=== PATIENT | female | born 1970 | race Caucasian/White ===

== ENCOUNTER 2018-10-01 06:38 | Emergency (ER) | payer BC, OTHER ==
[2018-10-01] MEDS ORDERED: Sodium Chloride 0.9% 10 ML Syringe FLUSH PRN (06:52)
[2018-10-01] MEDS ORDERED: Sodium Chloride 0.9% 2.5 ML Syringe FLUSH PRN (06:52)
[2018-10-01] MEDS ORDERED: Pantoprazole 40 MG Vial IVPUSH ONE (06:52)
[2018-10-01] MEDS ORDERED: Aspirin 81 MG Tab.Chew PO ONE (06:52)
--- NOTE | 2018-10-01 06:56 | EDM.PDOC ---
<Ave Ricks - Last Filed: 10/01/18 06:53> ED HPI GENERAL MEDICAL PROBLEM - General Chief Complaint: Chest Pain Stated Complaint: CHEST PAIN Time Seen by Provider: 10/01/18 06:43 - History of Present Illness INITIAL COMMENTS - FREE TEXT/NARRATIVE: HISTORY AND PHYSICAL: History of present illness: The patient is a 48-year-old female with no known medical history but says she has not seen a physician in over 10 years and presents with midsternal chest pain burning that started and woke her from sleep at 5 AM. The patient says she has no history of cardiac or pulmonary problems and doesn't get chest pain very often but does say that she gets heartburn intermittently at least once a week for which she uses [id number] Tums area she said that she had a normal day yesterday and did not eat any new foods or have any issues and no upper respiratory complaints and she went to sleep. She woke this morning with the midsternal chest burning and she thought it was her heartburn again so she took some Tums and when it did not go away she came here. She currently rates it as a 7/10. She was not nauseated and had no abdominal pain or vomiting but she said she felt very sweaty when this started. She felt she could not take a deep breath and now she does feel improved but still rates it as a 7/10. She did not take any other medications other than the Tums. She's had no black or bloody stools no diarrhea and went through menopause about 10 years ago. Her only family history is of a mother with congestive heart failure and a pacemaker but no cardiac disease that she is aware of. She has no social history. Review of systems: As per history of present illness and below otherwise all systems reviewed and negative. Past medical history: As per history of present illness and as reviewed below otherwise noncontributory. Surgical history: As per history of present illness and as reviewed below otherwise noncontributory. Social history: No reported history of drug or alcohol abuse. Family history: As per history of present illness and as reviewed below otherwise noncontributory. Physical exam: : Well-developed well-nourished thin female who is nontoxic and vital signs are noted by me. HEENT: Atraumatic, normocephalic, negative for conjunctival pallor or scleral icterus, mucous membranes moist, throat clear, neck supple, nontender, trachea midline. Lungs: Clear to auscultation, breath sounds equal bilaterally, chest nontender. Heart: S1S2, regular rate and rhythm no overt murmurs Abdomen: Soft, nondistended, nontender. Negative for masses or hepatosplenomegaly. NABS Pelvis: Deferred Genitourinary: Deferred. Rectal: Deferred. Extremities: Atraumatic, negative for cords or calf pain. Neurovascular unremarkable. No pedal edema or leg asymmetry Neuro: Awake, alert, oriented. Cranial nerves II through XII unremarkable. Cerebellum unremarkable. Motor and sensory unremarkable throughout. Exam nonfocal. Diagnostics: EKG chest x-ray CBC CMP INR troponin amylase lipase H. pylori Therapeutics: IV O2 monitor aspirin sublingual nitroglycerin Protonix Case is endorsed to Dr. Ramirez at 7 AM to follow-up TESTING results and disposition patient. Impression: Chest pain Definitive disposition and diagnosis as appropriate pending reevaluation and review of above. 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: Reports: Musculoskeletal History: Reports: None Neurological History: Reports: None Psychiatric History: Reports: None Endocrine/Metabolic History: Reports: None Hematologic History: Reports: None Immunologic History: Reports: None Oncologic (Cancer) History: Reports: None Dermatologic History: Reports: None - Infectious Disease History Infectious Disease History: Reports: None - Past Surgical History Head Surgeries/Procedures: Reports: None HEENT Surgical History: Reports: Adenoidectomy, Myringotomy w Tube(s), Tonsillectomy Female Surgical History: Reports: Section Social & Family History - Family History Family Medical History: Noncontributory - Tobacco Use Smoking Status *Q: Current Every Day Smoker Years of Tobacco use: 1 Packs/Tins Daily: 30 - Caffeine Use Caffeine Use: Reports: Soda - Recreational Drug Use Recreational Drug Use: No ED ROS GENERAL - Review of Systems Review Of Systems: ROS reveals no pertinent complaints other than HPI. ED EXAM, GENERAL - Physical Exam Exam: See Below (see Dictation) Course - Vital Signs Last Recorded V/S: Last Vital Signs Temp 97 F 10/01/18 06:47 Pulse 61 10/01/18 07:25 Resp 16 10/01/18 07:25 BP 99/68 10/01/18 07:25 Pulse Ox 100 10/01/18 07:31 - Orders/Labs/Meds Orders: Active Orders 24 hr Category Date Time Status Cardiac Monitoring [RC] . DIRECTED Care 10/01/18 06:50 Active EKG Documentation Completion [RC] STAT Care 10/01/18 06:50 Active Oxygen Therapy, ED [RC] ASDIRECTED Care 10/01/18 06:50 Active Pulse Oximetry [RC] ASDIRECTED Care 10/01/18 06:50 Active Nitroglycerin [Nitrostat] Med 10/01/18 06:52 Active 0.4 mg SL Q5M PRN Sodium Chloride 0.9% [Normal Saline] 1,000 ml Med 10/01/18 07:25 Active IV .Bolus Sodium Chloride 0.9% [Saline Flush] Med 10/01/18 06:52 Active 10 ml FLUSH ASDIRECTED PRN Sodium Chloride 0.9% [Saline Flush] Med 10/01/18 06:52 Active 2.5 ml FLUSH ASDIRECTED PRN Saline Lock Insert [OM.PC] Stat Oth 10/01/18 06:50 Ordered Medication Orders Sodium Chloride (Normal Saline) 1,000 mls @ 83 mls/hr IV .Bolus ONE Stop: 10/01/18 19:27 Last Infusion: 10/01/18 07:40 Dose: 83 mls/hr Admin: 10/01/18 07:26 Dose: 999 mls/hr Nitroglycerin (Nitrostat) 0.4 mg SL Q5M PRN PRN Reason: Chest Pain Last Admin: 10/01/18 07:09 Dose: 0.4 mg Admin: 10/01/18 06:58 Dose: 0.4 mg Sodium Chloride (Saline Flush) 10 ml FLUSH ASDIRECTED PRN PRN Reason: Keep Vein Open Sodium Chloride (Saline Flush) 2.5 ml FLUSH ASDIRECTED PRN PRN Reason: Keep Vein Open Labs: Laboratory Tests 10/01/18 10/01/18 10/01/18 Range/Units 06:46 06:46 06:46 WBC 9.90 (4.0-11.0) K/uL RBC 5.28 (4.30-5.90) M/uL Hgb 15.8 (12.0-16.0) g/dL Hct 46.8 H (36.0-46.0) % MCV 88.6 (80.0-98.0) fL MCH 29.9 (27.0-32.0) pg MCHC 33.8 (31.0-37.0) g/dL RDW Std Deviation 43.8 (28.0-62.0) fl RDW Coeff of Betzy 14 (11.0-15.0) % Plt Count 287 (150-400) K/uL MPV 11.10 (7.40-12.00) fL Neut % (Auto) 52.4 (48.0-80.0) % Lymph % (Auto) 34.1 (16.0-40.0) % [place] % (Auto) 10.5 (0.0-15.0) % Eos % (Auto) 2.7 (0.0-7.0) % Baso % (Auto) 0.3 (0.0-1.5) % Neut # (Auto) 5.2 (1.4-5.7) K/uL Lymph # (Auto) 3.4 H (0.6-2.4) K/uL [place] # (Auto) 1.0 H (0.0-0.8) K/uL Eos # (Auto) 0.3 (0.0-0.7) K/uL Baso # (Auto) 0.0 (0.0-0.1) K/uL Nucleated RBC % 0.0 /100WBC Nucleated RBCs # 0 K/uL INR 0.95 Sodium 141 (136-145) mmol/L Potassium 3.5 (3.5-5.1) mmol/L Chloride 105 (98-107) mmol/L Carbon Dioxide 25.0 (21.0-32.0) mmol/L BUN 9 (7.0-18.0) mg/dL Creatinine 0.8 (0.6-1.0) mg/dL Est Cr Clr Drug Dosing 74.26 mL/min Estimated GFR (MDRD) > 60.0 ml/min Glucose 127 H (74-106) mg/dL Calcium 9.4 (8.5-10.1) mg/dL Total Bilirubin 0.3 (0.2-1.0) mg/dL ALT 34 (14-63) IU/L Alkaline Phosphatase 118 H (46-116) U/L Troponin I < 0.050 (0.000-0.056) ng/mL Total Protein 7.2 (6.4-8.2) g/dL Albumin 3.3 L (3.4-5.0) g/dL Globulin 3.9 (2.6-4.0) g/dL Albumin/Globulin Ratio 0.9 (0.9-1.6) Amylase 33 (25-115) U/L Lipase 77 (73-393) U/L H. pylori IgG Antibody (NEG) 10/01/18 Range/Units 06:46 WBC (4.0-11.0) K/uL RBC (4.30-5.90) M/uL Hgb (12.0-16.0) g/dL Hct (36.0-46.0) % MCV (80.0-98.0) fL MCH (27.0-32.0) pg MCHC (31.0-37.0) g/dL RDW Std Deviation (28.0-62.0) fl RDW Coeff of Betzy (11.0-15.0) % Plt Count (150-400) K/uL MPV (7.40-12.00) fL Neut % (Auto) (48.0-80.0) % Lymph % (Auto) (16.0-40.0) % [place] % (Auto) (0.0-15.0) % Eos % (Auto) (0.0-7.0) % Baso % (Auto) (0.0-1.5) % Neut # (Auto) (1.4-5.7) K/uL Lymph # (Auto) (0.6-2.4) K/uL [place] # (Auto) (0.0-0.8) K/uL Eos # (Auto) (0.0-0.7) K/uL Baso # (Auto) (0.0-0.1) K/uL Nucleated RBC % /100WBC Nucleated RBCs # K/uL INR Sodium (136-145) mmol/L Potassium (3.5-5.1) mmol/L Chloride (98-107) mmol/L Carbon Dioxide (21.0-32.0) mmol/L BUN (7.0-18.0) mg/dL Creatinine (0.6-1.0) mg/dL Est Cr Clr Drug Dosing mL/min Estimated GFR (MDRD) ml/min Glucose (74-106) mg/dL Calcium (8.5-10.1) mg/dL Total Bilirubin (0.2-1.0) mg/dL ALT (14-63) IU/L Alkaline Phosphatase (46-116) U/L Troponin I (0.000-0.056) ng/mL Total Protein (6.4-8.2) g/dL Albumin (3.4-5.0) g/dL Globulin (2.6-4.0) g/dL Albumin/Globulin Ratio (0.9-1.6) Amylase (25-115) U/L Lipase (73-393) U/L H. pylori IgG Antibody POSITIVE H (NEG) Meds: Medications Generic Name Dose Route Start Last Admin Trade Name Freq PRN Reason Stop Dose Admin Sodium Chloride 1,000 mls @ 83 mls/hr 10/01/18 07:25 10/01/18 07:40 Normal Saline IV 10/01/18 19:27 83 mls/hr .Bolus ONE Infusion Nitroglycerin 0.4 mg 10/01/18 06:52 10/01/18 07:09 Nitrostat SL 0.4 mg Q5M PRN Administration Chest Pain Sodium Chloride 10 ml 10/01/18 06:52 Saline Flush FLUSH ASDIRECTED PRN Keep Vein Open Sodium Chloride 2.5 ml 10/01/18 06:52 Saline Flush FLUSH ASDIRECTED PRN Keep Vein Open Discontinued Medications Generic Name Dose Route Start Last Admin Trade Name Freq PRN Reason Stop Dose Admin Aspirin 324 mg 10/01/18 06:52 10/01/18 06:58 Aspirin PO 10/01/18 06:53 324 mg ONETIME ONE Administration Al Hydroxide/Mg Hydroxide 15 0 ml 10/01/18 07:30 10/01/18 07:36 ml/ Lidocaine HCl 5 ml PO 10/01/18 07:31 1 each ONETIME ONE Administration Pantoprazole Sodium 80 mg 10/01/18 06:52 10/01/18 06:58 Protonix Iv IVPUSH 10/01/18 06:53 80 mg .BOLUS ONE Administration Departure - Departure Disposition: Home, Self-Care 01 Clinical Impression: H. pylori infection Gastritis Qualifiers: Gastritis type: unspecified gastritis Chronicity: unspecified Gastritis bleeding: without bleeding Qualified Code(s): K29.70 - Gastritis, unspecified, without bleeding - Discharge Information Prescriptions: Clarithromycin 500 mg PO BID #28 tablet Lansoprazole [Prevacid] 30 mg PO DAILY #14 tab. levoFLOXacin [Levaquin] 500 mg PO DAILY #14 tab Instructions: Helicobacter Pylori Infection, Nonspecific Chest Pain, Easy-to- Read Referrals: PCP,None [Ordering Only Provider] - Forms: ED Department Discharge Additional Instructions: The following information is given to patients seen in the emergency department who are being discharged to home. This information is to outline your options for follow-up care. We provide all patients seen in our emergency department with a follow-up referral. The need for follow-up, as well as the timing and circumstances, are variable depending upon the specifics of your emergency department visit. If you don't have a primary care physician on staff, we will provide you with a referral. We always advise you to contact your personal physician following an emergency department visit to inform them of the circumstance of the visit and for follow-up with them and/or the need for any referrals to a consulting specialist. The emergency department will also refer you to a specialist when appropriate. This referral assures that you have the opportunity for follow-up care with a specialist. All of these measure are taken in an effort to provide you with optimal care, which includes your follow-up. Under all circumstances we always encourage you to contact your private physician who remains a resource for coordinating your care. When calling for follow-up care, please make the office aware that this follow-up is from your recent emergency room visit. If for any reason you are refused follow-up, please contact the [facility] Emergency Department at and asked to speak to the emergency department charge nurse. Take all meds as directed until gone, follow-up with general surgery for further evaluation and treatment. [facility] Specialty Care - General Surgery Professional Building [address] [place] [address], [address] [place] [address] - My Orders Last 24 Hours: My Active Orders 10/01/18 07:25 Sodium Chloride 0.9% [Normal Saline] 1,000 ml IV .Bolus - Assessment/Plan Last 24 Hours: My Active Orders 10/01/18 07:25 Sodium Chloride 0.9% [Normal Saline] 1,000 ml IV .Bolus <Holly Ramirez - Last Filed: 10/01/18 08:15> Departure - Departure Time of Disposition: 08:13 Condition: Good - Discharge Information *PRESCRIPTION DRUG MONITORING PROGRAM REVIEWED*: No *COPY OF PRESCRIPTION DRUG MONITORING REPORT IN PATIENT HERNAN: No
[2018-10-01] MEDS: Nitroglycerin 0.4 MG Tab.SL SL PRN ×2 (06:58→07:09)
--- NOTE | 2018-10-01 07:19 | CR ---
HISTORY: Chest pain, shortness of breath. TECHNIQUE: One view of the chest. COMPARISON: No prior. FINDINGS: Cardiac size and pulmonary vasculature are within normal limits. There is no acute lung infiltrate or pulmonary edema. No pneumothorax or pleural effusion. No acute bony abnormality. IMPRESSION: No acute disease. Dictated by Jak Montes MD @ 10/01/2018 7:17:50 AM Dictated by: aJk Montes MD @ 10/01/2018 07:17:53 (Electronically Signed)
[2018-10-01] MEDS ORDERED: Sodium Chloride 0.9% 1,000 ML IV ONE (07:25)
[2018-10-01] MEDS ORDERED: Alum Hydrox/Mag Hydrox/Simeth 15 ML, Lidocaine 2% 5 ML PO ONE ×2 (07:30)
[2018-10-01 07:47] LABS: CHLORIDE,CL 105 mmol/L (98-107); SODIUM,NA 141 mmol/L (136-145)
== END 2018-10-01 08:21 | disposition home or self-care (01) ==
LOC: MW.ED 06:38 → EDBD 06:38 → MW.ED 08:21
DX: A04.8 Other specified bacterial intestinal infections (principal); K29.70 Gastritis, unspecified, without bleeding; F17.210 Nicotine dependence, cigarettes, uncomplicated; Z88.0 Allergy status to penicillin; Z88.1 Allergy status to other antibiotic agents; Z79.899 Other long term (current) drug therapy
CPT/HCPCS: 36415; 71045; 80053; 82150; 83690; 84484; 85025; 85610; 86677; 93005; 96361; 96374; 99285; A9270; C9113; J7040; 99284

== ENCOUNTER 2020-02-06 13:49 | Emergency (ER) | payer SELFPAY ==
[2020-02-06] MEDS ORDERED: Amiodarone 150 MG in Dextrose 5% in Water 100 ML IV ONE ×4 (13:51→13:54)
[2020-02-06] MEDS ORDERED: Sodium Chloride 0.9% 1,000 ML IV ONE (13:52)
[2020-02-06] MEDS ORDERED: Sodium Chloride 0.9% 10 ML Syringe FLUSH PRN (13:52)
[2020-02-06] MEDS ORDERED: Sodium Chloride 0.9% 2.5 ML Syringe FLUSH PRN (13:52)
[2020-02-06] MEDS ORDERED: EPINEPHrine 1 MG/1 ML Amp IVPUSH ONE (13:54)
[2020-02-06] MEDS ORDERED: Tenecteplase 50 MG Kit ONE (13:56)
[2020-02-06] MEDS ORDERED: Tenecteplase 50 MG Kit IV ONE (13:57)
--- NOTE | 2020-02-06 14:01 | EDM.PDOC ---
ED HPI GENERAL MEDICAL PROBLEM - General Chief Complaint: CPR in Progress Stated Complaint: CODE BLUE Time Seen by Provider: 02/06/20 13:56 - History of Present Illness INITIAL COMMENTS - FREE TEXT/NARRATIVE: History of present illness: 49-year-old female, apparently previously healthy brought for chest discomforts , found in her car in cardiac arrest apparently she had been complaining of chest discomfort, described as heartburn, on and off for the last 48 hours. Today she noted that she started to have a funny feeling in her arms and told her significant other that she wanted to go to the doctor. As he was bringing her to the hospital, around the corner from the hospital she suddenly slumped over. He was able to get to the hospital and running and grabbed the nurses who found the patient pulseless in the car. CPR was started immediately and the patient was brought back to the trauma resuscitation bay. Review of systems: As per history of present illness and below otherwise all systems reviewed and negative. Past medical history: As per history of present illness and as reviewed below otherwise noncontributory. Surgical history: As per history of present illness and as reviewed below otherwise noncontributory. Social history: No reported history of drug or alcohol abuse. Daily smoker, denies drugs Family history: As per history of present illness and as reviewed below otherwise noncontributory. Physical exam: GEN: Significant distress pulseless, apneic HEENT: Atraumatic, normocephalic, dentures in place Neck: No signs of trauma Lungs: Apneic, breathing assisted by bag valve mask device Heart: Pulseless. CPR started immediately with good pulses/flow. First pulse check showed ventricular fibrillation. Abdomen: Soft, nondistended, atraumatic. Back: Deferred Extremities: Atraumatic. Neuro: Unresponsive on arrival. After resuscitation and regain of pulses, the patient was able to speak clearly with no dysarthria and oriented to date. She was able to move all 4 extremities. Skin: Pale, cyanotic Diagnostics: Monitor shows ventricular fibrillation without pulses. . Therapeutics: [] MDM: Pulseless ventricular fibrillation in setting of chest pain. After defibrillation at 200 J, the patient appeared to be in sinus rhythm and regained pulses and alertness. Amiodarone bolus started. EKG showed diffuse anterior ST elevation. Air ambulance activated. Discussed with emergency physician and airplane engineer at nearest [facility] facility, [facility]. They accept. TNKase started here. Repeat EKG does show significant ST elevations anteriorly diffusely and also in leads I and II. Patient to be emergently transferred. Patient significant other updated. Impression: [] Plan: [] Definitive disposition and diagnosis as appropriate pending reevaluation and review of above. - Related Data Allergies Allergy/AdvReac Type Severity Reaction Status Date / Time amoxicillin Allergy Rash Verified 02/06/20 14:23 Penicillins Allergy Rash Verified 02/06/20 14:23 Home Meds: Home Meds Clarithromycin 500 mg PO BID #28 tablet 10/01/18 [Rx] Lansoprazole [Prevacid] 30 mg PO DAILY #14 tab.rap.dr 10/01/18 [Rx] levoFLOXacin [Levaquin] 500 mg PO DAILY #14 tab 10/01/18 [Rx] Past Medical History HEENT History: Reports: None Cardiovascular History: Reports: None Respiratory History: Reports: None Gastrointestinal History: Reports: None Genitourinary History: Reports: None MATERIAL MOVERS History: Reports: Musculoskeletal History: Reports: None Neurological History: Reports: None Psychiatric History: Reports: None Endocrine/Metabolic History: Reports: None Hematologic History: Reports: None Immunologic History: Reports: None Oncologic (Cancer) History: Reports: None Dermatologic History: Reports: None - Infectious Disease History Infectious Disease History: Reports: None - Past Surgical History Head Surgeries/Procedures: Reports: None HEENT Surgical History: Reports: Adenoidectomy, Myringotomy w Tube(s), Tonsillectomy Female Surgical History: Reports: Section Social & Family History - Family History Family Medical History: Noncontributory - Caffeine Use Caffeine Use: Reports: Soda ED ROS GENERAL - Review of Systems Review Of Systems: See Below (See dictation) ED EXAM, CPR - Physical Exam Exam: See Below (See dictation) EKG INTERPRETATION EKG Interpretation Comments: EKG performed today at 1:51 PM shows sinus arrhythmia at a rate of [address] elevations from V2 to V6, maximal V2 through V5. Concerning for acute ST elevation SD. EKG performed at 2:18 PM shows sinus rhythm, rate [address] elevations,/tombstone formation in V2 through V6. Also apparent ST elevations in lead I, II and aVL with ST depressions in aVR. Diffuse acute ST elevation SD. Course - Orders/Labs/Meds Orders: Active Orders 24 hr Category Date Time Status EKG Documentation Completion [RC] STAT Care 02/06/20 13:52 Active Height and Weight [RC] UPON Care 02/06/20 13:59 Active Chest 1V Frontal [CR] Stat Exams 02/06/20 13:52 Ordered CBC WITH AUTO DIFF [HEME] Stat Lab 02/06/20 13:54 Received COMPREHENSIVE METABOLIC PN,CMP [CHEM] Stat Lab 02/06/20 13:54 Received DRUG SCREEN, URINE [URCHEM] Stat Lab 02/06/20 14:00 Received INR,PT,PROTHROMBIN TIME [COAG] Stat Lab 02/06/20 13:54 Received TROPONIN I [CHEM] Stat Lab 02/06/20 13:54 Received UA RFX DIANNE AND CULT IF INDIC [URIN] Stat Lab 02/06/20 14:00 Received Sodium Chloride 0.9% [Normal Saline] 1,000 ml Med 02/06/20 13:52 Active IV STAT Sodium Chloride 0.9% [Saline Flush] Med 02/06/20 13:52 Active 10 ml FLUSH ASDIRECTED PRN Sodium Chloride 0.9% [Saline Flush] Med 02/06/20 13:52 Active 2.5 ml FLUSH ASDIRECTED PRN fentaNYL Med 02/06/20 14:14 Once 50 mcg IVPUSH ONETIME ONE Saline Lock Insert [OM.PC] Stat Oth 02/06/20 13:52 Ordered Medication Orders Sodium Chloride (Normal Saline) 1,000 mls @ 999 mls/hr IV STAT ONE Stop: 02/06/20 14:52 Sodium Chloride (Saline Flush) 10 ml FLUSH ASDIRECTED PRN PRN Reason: Keep Vein Open Sodium Chloride (Saline Flush) 2.5 ml FLUSH ASDIRECTED PRN PRN Reason: Keep Vein Open Meds: Medications Generic Name Dose Route Start Last Admin Trade Name Freq PRN Reason Stop Dose Admin Sodium Chloride 1,000 mls @ 999 mls/hr 02/06/20 13:52 Normal Saline IV 02/06/20 14:52 STAT ONE Sodium Chloride 10 ml 02/06/20 13:52 Saline Flush FLUSH ASDIRECTED PRN Keep Vein Open Sodium Chloride 2.5 ml 02/06/20 13:52 Saline Flush FLUSH ASDIRECTED PRN Keep Vein Open Discontinued Medications Generic Name Dose Route Start Last Admin Trade Name Erik PRN Reason Stop Dose Admin Epinephrine HCl 1 mg 02/06/20 13:54 Adrenalin IVPUSH 02/06/20 13:55 ONETIME ONE Amiodarone HCl 150 mg/ 103 mls @ 600 mls/hr 02/06/20 13:54 Dextrose/Water IV 02/06/20 14:04 .BOLUS ONE Heparin Sodium/Sodium Chloride Confirm 02/06/20 14:10 Heparin-1/2ns 25,000 Units/500 Administered 02/06/20 14:11 Dose 25,000 unit in 500 mls @ as directed IV .STK-MED ONE Tenecteplase Confirm 02/06/20 13:56 Tnkase Administered 02/06/20 13:57 Dose 50 mg .ROUTE .STK-MED ONE Tenecteplase 0 mg 02/06/20 13:57 Tnkase IV 02/06/20 13:58 ONETIME ONE Protocol - Re-Assessments/Exams Free Text/Narrative Re-Assessment/Exam: 02/06/20 13:50 After defibrillation, pulses returned, EKG shows STEMI, air transport activated 02/06/20 14:06 Discussed with ER physician, DR Fajardo, at [facility], who agrees with plan for transfer emergently via air for ST elevation with V. fib arrest. We will also speak to airplane engineer, Winnie - agrees with plan for TNKase and also request heparin 1000 units/h and depending on pressure nitro drip and metoprolol. The patient's blood pressure was initially checked at 200, however on immediate recheck/manual recheck it was 112 systolic. Therefore nitro drip and metoprolol were held. 02/06/20 14:19 I reassessed the patient. She is now much more alert and speaking clearly. She reports she has been having chest pain for the last 2 days that has been coming and going and at first she thought it was just heartburn, however today her arm started to hurt more. Was able to verbalize this history, and this had previously been confirmed by her significant other at the time that she was pulseless. Currently, she is able to tell me it is February 06, 2020. She is able to tell me that she is having a lot of pain. Fentanyl was ordered. I discussed at length with the patient the need for emergent transfer via helicopter to [facility] for cardiac catheterization and possibly stenting. Voiced understanding and agrees. Consents to transfer and TNKase. TNKase was started. Departure - Departure Time of Disposition: 14:13 Disposition: DC/Tfer to Acute Hospital 02 Clinical Impression: Cardiac arrest with ventricular fibrillation, Cardiac arrest STEMI (ST elevation myocardial infarction) Qualifiers: Involved coronary artery: unspecified coronary artery Qualified Code(s): I21.3 - ST elevation (STEMI) myocardial infarction of unspecified site - Discharge Information Referrals: PCP,None [Primary Care Provider] - Forms: ED Department Discharge Critical Care Note - Critical Care Note Total Time (mins): 35 - My Orders Last 24 Hours: My Active Orders 02/06/20 13:59 Height and Weight [RC] UPON 02/06/20 14:14 fentaNYL 50 mcg IVPUSH ONETIME ONE - Assessment/Plan Last 24 Hours: My Active Orders 02/06/20 13:59 Height and Weight [RC] UPON 02/06/20 14:14 fentaNYL 50 mcg IVPUSH ONETIME ONE
[2020-02-06] MEDS ORDERED: Heparin Sod,Pork In 0.45% Nacl 25,000 UNIT/500 ML IV.SOLN IV ONE (14:10)
[2020-02-06] MEDS ORDERED: fentaNYL 50 MCG/ML SDV IVPUSH ONE (14:14)
[2020-02-06] MEDS ORDERED: fentaNYL 50 MCG/ML SDV ONE (14:17)
--- NOTE | 2020-02-06 14:26 | CR ---
Chest: Portable view of the chest was obtained. Comparison: Prior chest x-ray of 10/01/18. Diffuse increased density within the right perihilar region is seen as well as patchy areas of interstitial change within the left perihilar region. Heart size and mediastinum are normal. Increased gas noted within stomach presumably from swallowed air. Bony structures are grossly intact. Impression: 1. Increased perihilar densities within both sides of the chest, worse on the right side. Differential includes diffuse bronchopneumonia either bacterial or viral as well as asymmetric pulmonary vascular congestion from acute cardiac event. Diagnostic code #3 Study was dictated in MDT
[2020-02-06 14:35] LABS: BLOOD UREA NITROGEN,BUN 8 mg/dL (7.0-18.0); CARBON DIOXIDE,CO2 21.7 mmol/L (21.0-32.0); CHLORIDE,CL 104 mmol/L (98-107); GLUCOSE RANDOM 131 mg/dL (74-106); SODIUM,NA 142 mmol/L (136-145)
== END 2020-02-06 14:31 ==
LOC: MW.ED 13:49
DX: I46.9 Cardiac arrest, cause unspecified (principal); I21.3 ST elevation (STEMI) myocardial infarction of unspecified site; I49.01 Ventricular fibrillation; Z88.1 Allergy status to other antibiotic agents; Z88.0 Allergy status to penicillin; Z79.899 Other long term (current) drug therapy
CPT/HCPCS: 36415; 51702; 71045; 80053; 80305; 81001; 84484; 85025; 85610; 87086; 92950; 93005; 96361; 96374; 96375; 99291; J0171; J0282; J1644; J3010; J3101; J7030; J7060

== ENCOUNTER 2020-03-21 04:08 | Emergency (ER) | payer BC ==
[2020-03-21] MEDS ORDERED: Sodium Chloride 0.9% 2.5 ML Syringe FLUSH PRN (04:25)
[2020-03-21] MEDS ORDERED: Sodium Chloride 0.9% 10 ML Syringe FLUSH PRN (04:25)
[2020-03-21] MEDS ORDERED: Sodium Chloride 0.9% 10 ML SDV IV PRN (04:25)
[2020-03-21] MEDS ORDERED: Morphine 4 MG/ML Syringe IVPUSH ONE (04:25)
[2020-03-21] MEDS ORDERED: Nitroglycerin 0.4 MG Tab.SL SL PRN (04:25)
[2020-03-21] MEDS ORDERED: Ondansetron 4 MG/2 ML SDV ONE (04:31)
[2020-03-21] MEDS ORDERED: Ondansetron 4 MG/2 ML SDV IVPUSH ONE ×2 (04:31→06:23)
--- NOTE | 2020-03-21 04:40 | EDM.PDOC ---
ED HPI GENERAL MEDICAL PROBLEM - General Chief Complaint: Chest Pain Stated Complaint: CHEST PAIN Time Seen by Provider: 03/21/20 04:28 Source of Information: Reports: Patient, EMS, RN Notes Reviewed History Limitations: Reports: No Limitations - History of Present Illness INITIAL COMMENTS - FREE TEXT/NARRATIVE: HISTORY AND PHYSICAL: History of present illness: This is a 49-year-old female who has history significant for cardiac arrest on February 06, 2020 resulting from an acute myocardial infarction with ST elevation requiring transfer to [facility] where she underwent a cardiac catheterization and had a stent placed. Patient reports that she was discharged from the hospital and was scheduled to return on March 14 which she did for a second stent placement and a second vessel. Patient reports that she went on Thursday and was ultimately discharged days later on March 18. Patient reports that today she had chest pain that started approximately midnight and felt like pressure on her chest. Patient reports that she had associated shortness of breath, nausea, and discomfort going down both her arms. Patient reports prior to her first heart attack on February 05 she felt like she was having heartburn for approximately 2 days and started experiencing pain going down her left arm. She reports that the discomfort that she is experiencing currently is different than the discomfort that she felt prior to her heart attack on February 05. Patient reports that she was sleeping when the pain started. Patient reports that she got up out of bed and walk to the couch. Patient reports no change in her pain or discomfort with ambulation to the couch. Patient denies any recent fevers, shakes, chills, vomiting, diarrhea, dysuria, frequency, urgency, abdominal pain. Patient reports that she took 1 sublingual nitroglycerin without any relief in her pain. Patient did not receive any further nitroglycerin by EMS secondary to a significant drop in her blood pressure and they arrived. Patient did receive an aspirin ready by EMS. Patient denies any tobacco since February 06, 2020, denies alcohol, denies any drugs. Patient denies any history of hypertension, diabetes, liver, lung, kidney problems. Patient reports she is allergic to amoxicillin, penicillin and sulfa drugs. Review of systems: As per history of present illness and below otherwise all systems reviewed and negative. Past medical history: As per history of present illness and as reviewed below otherwise noncontributory. Surgical history: As per history of present illness and as reviewed below otherwise noncontributory. Social history: No reported history of drug or alcohol abuse. Family history: As per history of present illness and as reviewed below otherwise noncontributor y. Physical exam: Constitutional: Patient is oriented to person, place, and time. Appears well- developed and well-nourished. No distress. HEENT: Moist mucous membranes Head: Normocephalic and atraumatic Eyes: Right eye exhibits no discharge. Left eye exhibits no discharge. No scleral icterus Neck: Normal range of motion. No tracheal deviation present. Cardiovascular: Normal rate and regular rhythm. Pulmonary: Effort normal, no respiratory distress. Abdominal: No distention Musculoskeletal: Normal range of motion Neurologic: Alert and oriented to person, place and time. Skin: [place], warm and dry. Psychiatric: Normal mood and affect. Behavior is normal. Judgment and thought content normal. Nursing note and vital signs have been reviewed Diagnostics: EKG obtained at 4:07 [address] reveals concave [address] segments in V2 through V6. It is unclear whether or not this is a result of her prior [place] with aneurysmal dilatation of her heart wall versus new EKG changes. We are in the process of trying to obtain her EKG from [facility]. 5:23 AM: Case discussed with Dr. Shankar at . He was able to send me an EKG from March 17, 2020 (16.28.06) . 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 At this point, Dr. Shankar and I both agree that thrombolytic therapy would not be indicated. Patient is currently resting comfortably and reports her pain has improved. Patient has been started on a heparin drip per non-STEMI protocol. ASA has been given by EMS. Morphine 2 mg IV x2 Zofran 4 mg IV NSS x1 L Potassium chloride 40 mEq p.o. x1 Assessment and plan This is a 49-year-old female who has a history significant for coronary disease who presents ER today complaining of chest pain. Patient's troponin is elevated here in the ED. Patient's EKG does show ST elevations in V2 through V6. This is been reviewed with her old EKGs by myself and Dr. 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 Patient's elevated troponin was discussed with Dr. Shankar and it appears that this is trending downwards. Patient has been accepted by Dr. Shankar for transport. critical Care: The high probability of sudden, clinically significant deterioration in the patient's condition required the highest level of my preparedness to intervene urgently. The services I provided to this patient were to treat and/or prevent clinically significant deterioration. Services included the following: chart data review, reviewing nursing notes and/or old charts, documentation time, banking consultant collaboration regarding findings and treatment options, medication orders and management, direct patient care, vital sign assessments and ordering, interpreting and reviewing diagnostic studies/lab tests. Aggregate critical care time includes only time during which I was engaged in work directly related to the patient's care, as described above, whether at the bedside or elsewhere in the Emergency Department. It did not include time spent performing other reported procedures or the services of residents, students, nurses or physician assistants. Critical Care Time: 35 minutes Definitive disposition and diagnosis as appropriate pending reevaluation and review of above. chest pain Pain Score (Numeric/FACES): 5 - Related Data Allergies Allergy/AdvReac Type Severity Reaction Status Date / Time amoxicillin Allergy Rash Verified 03/21/20 04:16 Penicillins Allergy Rash Verified 03/21/20 04:16 Sulfa (Sulfonamide Allergy Vomiting Verified 03/21/20 04:16 Antibiotics) Home Meds: Home Meds Acetaminophen/Diphenhydramine [Tylenol Pm Ex-Strength Caplet] 1 each PO ASDIRECTED PRN 03/21/20 [History] Aspirin [Aspirin EC] 81 mg PO DAILY 03/21/20 [History] Benzonatate 100 mg PO TID PRN 03/21/20 [History] Furosemide [Lasix] 4 mg PO BID 03/21/20 [History] Metoprolol Succinate [Toprol XL] 12.5 mg PO DAILY 03/21/20 [History] Nitroglycerin 0.4 mg PO ASDIRECTED PRN 03/21/20 [History] Potassium Chloride [Klor-Con M20] 20 meq PO BID 03/21/20 [History] Rosuvastatin Calcium [Crestor] 40 mg PO BEDTIME 03/21/20 [History] Ticagrelor [Brilinta] 90 mg PO BID 03/21/20 [History] lisinopriL [Lisinopril] 2.5 mg PO DAILY 03/21/20 [History] Past Medical History HEENT History: Reports: None Cardiovascular History: Reports: High Cholesterol, Hypertension, Stents Other Cardiovascular History: cardiac arrest january 2020 Respiratory History: Reports: None Gastrointestinal History: Reports: None Genitourinary History: Reports: None MEDICAL ESTHETICIAN History: Reports: Musculoskeletal History: Reports: None Neurological History: Reports: None Psychiatric History: Reports: None Endocrine/Metabolic History: Reports: None Hematologic History: Reports: None Immunologic History: Reports: None Oncologic (Cancer) History: Reports: None Dermatologic History: Reports: None - Infectious Disease History Infectious Disease History: Reports: Chicken Pox - Past Surgical History Head Surgeries/Procedures: Reports: None HEENT Surgical History: Reports: Adenoidectomy, Myringotomy w Tube(s), Tonsillectomy Female Surgical History: Reports: Section Social & Family History - Family History Family Medical History: Noncontributory - Tobacco Use Smoking Status *Q: Former Smoker Used Tobacco, but Quit: Yes Month/Year Tobacco Last Used: 2019 - Caffeine Use Caffeine Use: Reports: Tea - Recreational Drug Use Recreational Drug Use: No ED ROS GENERAL - Review of Systems Review Of Systems: Comprehensive ROS is negative, except as noted in HPI. ED EXAM, GENERAL - Physical Exam Exam: See Below EKG INTERPRETATION EKG Date: 03/21/20 EKG Interpretation Comments: EKG: Normal sinus rhythm heart rate of Nonspecific ST-T wave abnormalities Normal axis ST elevations noted in leads V2 through V6. Suspicion for ST elevation [place] versus ventricular aneurysmal dilatation from recent prior transmural myocardial infarction As interpreted by ER physician: Vahid Course - Vital Signs Last Recorded V/S: Last Vital Signs Temp 96.6 F L 03/21/20 04:23 Pulse 77 03/21/20 05:52 Resp 21 H 03/21/20 05:52 BP 114/72 03/21/20 05:52 Pulse Ox 99 03/21/20 05:52 - Orders/Labs/Meds Labs: Laboratory Tests 03/21/20 03/21/20 03/21/20 Range/Units 04:10 04:10 04:10 WBC 10.99 (4.0-11.0) K/uL RBC 4.94 (4.30-5.90) M/uL Hgb 14.9 (12.0-16.0) g/dL Hct 44.0 (36.0-46.0) % MCV 89.1 (80.0-98.0) fL MCH 30.2 (27.0-32.0) pg MCHC 33.9 (31.0-37.0) g/dL RDW Std Deviation 43.1 (28.0-62.0) fl RDW Coeff of Betzy 13 (11.0-15.0) % Plt Count 305 (150-400) K/uL MPV 12.10 H (7.40-12.00) fL Neut % (Auto) 41.6 L (48.0-80.0) % Lymph % (Auto) 43.2 H (16.0-40.0) % [place] % (Auto) 13.5 (0.0-15.0) % Eos % (Auto) 1.4 (0.0-7.0) % Baso % (Auto) 0.3 (0.0-1.5) % Neut # (Auto) 4.6 (1.4-5.7) K/uL Lymph # (Auto) 4.8 H (0.6-2.4) K/uL [place] # (Auto) 1.5 H (0.0-0.8) K/uL Eos # (Auto) 0.2 (0.0-0.7) K/uL Baso # (Auto) 0.0 (0.0-0.1) K/uL Nucleated RBC % 0.0 /100WBC Nucleated RBCs # 0 K/uL INR APTT (18.6-31.3) SEC Sodium 135 L (136-145) mmol/L Potassium 2.9 L (3.5-5.1) mmol/L Chloride 93 L (98-107) mmol/L Carbon Dioxide 25.8 (21.0-32.0) mmol/L BUN 20 H (7.0-18.0) mg/dL Creatinine 1.3 H (0.6-1.0) mg/dL Est Cr Clr Drug Dosing 47.10 mL/min Estimated GFR (MDRD) 43.5 ml/min Glucose 115 H (74-106) mg/dL Calcium 9.2 (8.5-10.1) mg/dL Total Bilirubin 0.5 (0.2-1.0) mg/dL AST 20 (15-37) IU/L ALT 25 (14-63) IU/L Alkaline Phosphatase 79 (46-116) U/L Troponin I 0.258 H* (0.000-0.056) ng/mL B-Natriuretic Peptide 239 H (<100) PG/ML Total Protein 8.4 H (6.4-8.2) g/dL Albumin 4.1 (3.4-5.0) g/dL Globulin 4.3 H (2.6-4.0) g/dL Albumin/Globulin Ratio 1.0 (0.9-1.6) 03/21/20 Range/Units 05:44 WBC (4.0-11.0) K/uL RBC (4.30-5.90) M/uL Hgb (12.0-16.0) g/dL Hct (36.0-46.0) % MCV (80.0-98.0) fL MCH (27.0-32.0) pg MCHC (31.0-37.0) g/dL RDW Std Deviation (28.0-62.0) fl RDW Coeff of Betzy (11.0-15.0) % Plt Count (150-400) K/uL MPV (7.40-12.00) fL Neut % (Auto) (48.0-80.0) % Lymph % (Auto) (16.0-40.0) % [place] % (Auto) (0.0-15.0) % Eos % (Auto) (0.0-7.0) % Baso % (Auto) (0.0-1.5) % Neut # (Auto) (1.4-5.7) K/uL Lymph # (Auto) (0.6-2.4) K/uL [place] # (Auto) (0.0-0.8) K/uL Eos # (Auto) (0.0-0.7) K/uL Baso # (Auto) (0.0-0.1) K/uL Nucleated RBC % /100WBC Nucleated RBCs # K/uL INR 1.01 APTT 26.3 (18.6-31.3) SEC Sodium (136-145) mmol/L Potassium (3.5-5.1) mmol/L Chloride (98-107) mmol/L Carbon Dioxide (21.0-32.0) mmol/L BUN (7.0-18.0) mg/dL Creatinine (0.6-1.0) mg/dL Est Cr Clr Drug Dosing mL/min Estimated GFR (MDRD) ml/min Glucose (74-106) mg/dL Calcium (8.5-10.1) mg/dL Total Bilirubin (0.2-1.0) mg/dL AST (15-37) IU/L ALT (14-63) IU/L Alkaline Phosphatase (46-116) U/L Troponin I (0.000-0.056) ng/mL B-Natriuretic Peptide (<100) PG/ML Total Protein (6.4-8.2) g/dL Albumin (3.4-5.0) g/dL Globulin (2.6-4.0) g/dL Albumin/Globulin Ratio (0.9-1.6) Meds: Medications Discontinued Medications Generic Name Dose Route Start Last Admin Trade Name Jasonq PRN Reason Stop Dose Admin Heparin Sodium (Porcine) 5,000 units 03/21/20 05:53 03/21/20 06:00 Heparin Sodium IVPUSH 03/21/20 05:54 5,000 units ONETIME ONE Administration Sodium Chloride 1,000 mls @ 1,000 mls/hr 03/21/20 04:42 03/21/20 04:48 Normal Saline IV 03/21/20 05:41 1,000 mls/hr BOLUS ONE Administration Heparin Sodium/Sodium Chloride 25,000 unit in 500 mls @ 15.894 mls/hr 03/21/20 05:30 03/21/20 06:01 Heparin-1/2ns 25,000 Units/500 IV 12 units/kg/hr TITRATE KUN 15.894 mls/hr Administration Protocol 12 UNITS/KG/HR Heparin Sodium/Sodium Chloride Confirm 03/21/20 05:55 03/21/20 06:08 Heparin-1/2ns 25,000 Units/500 Administered 03/21/20 05:56 Not Given Dose 25,000 unit in 500 mls @ as directed IV .STK-MED ONE Morphine Sulfate 4 mg 03/21/20 04:25 03/21/20 04:31 Morphine IVPUSH 03/21/20 04:26 4 mg ONETIME ONE Administration Morphine Sulfate 2 mg 03/21/20 05:33 03/21/20 05:48 Morphine IVPUSH 03/21/20 05:34 2 mg ONETIME ONE Administration Nitroglycerin 0.4 mg 03/21/20 04:25 Nitrostat SL Q5M PRN Chest Pain Ondansetron HCl 4 mg 03/21/20 04:31 03/21/20 04:35 Zofran IVPUSH 03/21/20 04:32 4 mg ONETIME ONE Administration Ondansetron HCl Confirm 03/21/20 04:31 03/21/20 04:35 Zofran Administered 03/21/20 04:32 Not Given Dose 4 mg .ROUTE .STK-MED ONE Ondansetron HCl 4 mg 03/21/20 06:23 03/21/20 06:29 Zofran IVPUSH 03/21/20 06:24 4 mg ONETIME ONE Administration Sodium Chloride 10 ml 03/21/20 04:25 03/21/20 04:31 Saline Flush FLUSH 10 ml ASDIRECTED PRN Administration Keep Vein Open Sodium Chloride 2.5 ml 03/21/20 04:25 03/21/20 04:31 Saline Flush FLUSH 2.5 ml ASDIRECTED PRN Administration Keep Vein Open Sodium Chloride 10 ml 03/21/20 04:25 Normal Saline IV ASDIRECTED PRN IV Use Departure - Departure Time of Disposition: 05:37 Disposition: DC/Tfer to Acute Hospital 02 Condition: Good Clinical Impression: Acute coronary syndrome - Discharge Information Referrals: PCP,None [Primary Care Provider] - Forms: ED Department Discharge Sepsis Event Note (ED) - Evaluation Sepsis Screening Result: No Definite Risk
[2020-03-21] MEDS ORDERED: Sodium Chloride 0.9% 1,000 ML IV ONE (04:42)
[2020-03-21 04:50] LABS: CARBON DIOXIDE,CO2 25.8 mmol/L (21.0-32.0); POTASSIUM,K 2.9 mmol/L (3.5-5.1)
--- NOTE | 2020-03-21 04:57 | CR ---
INDICATION: chest pain TECHNIQUE: Chest 1 view. COMPARISON: 02/06/20 FINDINGS: Cardiovascular and mediastinum: Heart size and vasculature are normal in caliber and appearance. Mediastinum is within normal limits. Lungs and pleural space: Lungs are clear. No sign of infiltrate or mass. No sign of pleural effusion. No pneumothorax. Bones and soft tissues: No significant findings. IMPRESSION: Unremarkable chest. Dictated by: Isra Sumner MD @ 03/21/2020 04:56:11 (Electronically Signed)
[2020-03-21] MEDS ORDERED: Heparin Sod,Pork In 0.45% Nacl 25,000 UNIT/500 ML IV.SOLN IV SCH (05:30)
[2020-03-21] MEDS ORDERED: Morphine 2 MG/ML SYRINGE IVPUSH ONE (05:33)
[2020-03-21] MEDS ORDERED: Heparin Sodium 5,000 Units/ML Vial IVPUSH ONE (05:53)
[2020-03-21] MEDS ORDERED: Heparin Sod,Pork In 0.45% Nacl 25,000 UNIT/500 ML IV.SOLN IV ONE (05:55)
== END 2020-03-21 06:30 ==
LOC: MW.ED 04:08
DX: I24.9 Acute ischemic heart disease, unspecified (principal); E78.00 Pure hypercholesterolemia, unspecified; I10 Essential (primary) hypertension; Z88.1 Allergy status to other antibiotic agents; Z88.0 Allergy status to penicillin; Z88.2 Allergy status to sulfonamides; Z95.5 Presence of coronary angioplasty implant and graft; Z79.82 Long term (current) use of aspirin; Z79.899 Other long term (current) drug therapy; Z87.891 Personal history of nicotine dependence
CPT/HCPCS: 36415; 71045; 80053; 83880; 84484; 85025; 85610; 85730; 93005; 96365; 96375; 96376; 99285; J1644; J2270; J2405; J7030

== ENCOUNTER 2020-04-10 18:23 | Emergency (ER) | payer BC ==
[2020-04-10] MEDS ORDERED: Sodium Chloride 0.9% 2.5 ML Syringe FLUSH PRN (18:28)
[2020-04-10] MEDS ORDERED: Sodium Chloride 0.9% 10 ML Syringe FLUSH PRN (18:28)
[2020-04-10 19:19] LABS: BLOOD UREA NITROGEN,BUN 13 mg/dL (7.0-18.0); CARBON DIOXIDE,CO2 27.1 mmol/L (21.0-32.0); CHLORIDE,CL 98 mmol/L (98-107); GLUCOSE RANDOM 123 mg/dL (74-106); POTASSIUM,K 2.9 mmol/L (3.5-5.1); SODIUM,NA 136 mmol/L (136-145)
[2020-04-10] MEDS ORDERED: Acetaminophen/oxyCODONE 325-5 MG Tab PO ONE (19:52)
--- NOTE | 2020-04-10 19:59 | EDM.PDOC ---
ED HPI GENERAL MEDICAL PROBLEM - General Chief Complaint: Cardiovascular Problem Stated Complaint: CHEST PAIN Time Seen by Provider: 04/10/20 18:42 Source of Information: Reports: Patient History Limitations: Reports: No Limitations - History of Present Illness INITIAL COMMENTS - FREE TEXT/NARRATIVE: History of present illness: [Patient is 49-year-old female who presents to the emergency department with nausea and vomiting earlier today, and left-sided chest wall pain associated with the location of her recently implanted AICD. She had this put in at [facility] 5 days ago. 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 She denies any purulent discharge, no fever, no shortness of breath, no chest pressure, no exertional chest pain. She states that the pain over the site seems to be somewhat positional and it is somewhat tender to palpation as well. She has follow-up tomorrow morning at [facility] to evaluate the device and make her everything is going well. She currently denies any nausea. She states she has no belly pain. She has been using tramadol at home to manage the pain related to the recent implantation of the AICD.] Review of systems: As per history of present illness and below otherwise all systems reviewed and negative. Past medical history: As per history of present illness and as reviewed below otherwise noncontributory. Surgical history: As per history of present illness and as reviewed below otherwise noncontributory. Social history: No reported history of drug or alcohol abuse. Family history: As per history of present illness and as reviewed below otherwise noncontributory. Physical exam: General: Awake, alert, no acute distress, A&O X3. HEENT: Atraumatic, normocephalic, pupils reactive, negative for conjunctival pallor or scleral icterus, mucous membranes moist, throat clear, neck supple, nontender, trachea midline. Lungs: Clear to auscultation, breath sounds equal bilaterally, chest nontender. Heart: RRR, normal S1S2, no JVD. Chest wall: scar over AICD site is clean, intact, no purulent discharge, no erythema. no fluid collection noted. Abdomen: Soft, nondistended, nontender. Negative for masses or hepatosplenomegaly. Negative for costovertebral tenderness. Pelvis: Stable nontender. Genitourinary: Deferred. Rectal: Deferred. Extremities: Atraumatic, no edema, Neurovascular unremarkable. Neuro: Motor and sensory grossly intact throughout. Exam nonfocal. Diagnostics: [] Therapeutics: [] Impression: [] Plan: [] Definitive disposition and diagnosis as appropriate pending reevaluation and review of above. - Related Data Allergies Allergy/AdvReac Type Severity Reaction Status Date / Time amoxicillin Allergy Rash Verified 04/10/20 18:25 Penicillins Allergy Rash Verified 04/10/20 18:25 Sulfa (Sulfonamide Allergy Vomiting Verified 04/10/20 18:25 Antibiotics) Home Meds: Home Meds Acetaminophen/Diphenhydramine [Tylenol Pm Ex-Strength Caplet] 1 each PO ASDIRECTED PRN 03/21/20 [History] Aspirin [Aspirin EC] 81 mg PO DAILY 03/21/20 [History] Metoprolol Succinate [Toprol XL] 12.5 mg PO DAILY 03/21/20 [History] Nitroglycerin 0.4 mg PO ASDIRECTED PRN 03/21/20 [History] Rosuvastatin Calcium [Crestor] 40 mg PO BEDTIME 03/21/20 [History] Furosemide [Lasix] 20 mg PO DAILY 04/10/20 [History] Lansoprazole [Prevacid] 30 mg PO DAILY 04/10/20 [History] Spironolactone [Aldactone] 12.5 mg PO DAILY 04/10/20 [History] Ticagrelor [Brilinta] 90 mg PO BID 04/10/20 [History] Past Medical History HEENT History: Reports: None Cardiovascular History: Reports: High Cholesterol, Hypertension, Pacemaker, Stents Other Cardiovascular History: cardiac arrest january 2020 Respiratory History: Reports: None Gastrointestinal History: Reports: None Genitourinary History: Reports: None [employer] History: Reports: Musculoskeletal History: Reports: None Neurological History: Reports: None Psychiatric History: Reports: None Endocrine/Metabolic History: Reports: None Hematologic History: Reports: None Immunologic History: Reports: None Oncologic (Cancer) History: Reports: None Dermatologic History: Reports: None - Infectious Disease History Infectious Disease History: Reports: Chicken Pox - Past Surgical History Head Surgeries/Procedures: Reports: None HEENT Surgical History: Reports: Adenoidectomy, Myringotomy w Tube(s), Tonsillectomy Female Surgical History: Reports: Section Social & Family History - Family History Family Medical History: Noncontributory - Tobacco Use Smoking Status *Q: Former Smoker Used Tobacco, but Quit: Yes Month/Year Tobacco Last Used: 2019 - Caffeine Use Caffeine Use: Reports: None - Recreational Drug Use Recreational Drug Use: No ED ROS GENERAL - Review of Systems Review Of Systems: Comprehensive ROS is negative, except as noted in HPI. ED EXAM, GENERAL - Physical Exam Exam: See Below (see h and p) EKG INTERPRETATION EKG Date: 04/10/20 Time: 18:30 Rhythm: NSR Rate (Beats/Min): 85 [place]: Normal P-Wave: Present QRS: Normal ST-T: Elevated (V2-V6) QT: Normal Comparison: No Change (compared to EKG 03/21/20) Course - Vital Signs Text/Narrative:: Serial troponins are negative. Patient reports improvement in her pain overall. She still is experiencing occasional palpitations but her heart rate is in the 70s, she was in a normal sinus rhythm on the EKG, has not demonstrated any runs of V. tach or A. fib or flutter on the monitor since arrival here. 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 I believe she is safe for discharge home tonight and follow-up in the morning. She is not having any active chest pain, she not short of breath, vital signs are stable, she is agreeable with this plan and nontoxic at the time of discharge. Last Recorded V/S: Last Vital Signs Temp 35.8 C L 04/10/20 18:29 Pulse 80 04/10/20 20:59 Resp 16 04/10/20 20:59 BP 99/54 L 04/10/20 20:59 Pulse Ox 99 04/10/20 20:59 - Orders/Labs/Meds Orders: Active Orders 24 hr Category Date Time Status Cardiac Monitoring [RC] . DIRECTED Care 04/10/20 18:28 Active EKG Documentation Completion [RC] STAT Care 04/10/20 18:28 Active Pulse Oximetry [RC] ASDIRECTED Care 04/10/20 18:28 Active Sodium Chloride 0.9% [Saline Flush] Med 04/10/20 18:28 Active 10 ml FLUSH ASDIRECTED PRN Sodium Chloride 0.9% [Saline Flush] Med 04/10/20 18:28 Active 2.5 ml FLUSH ASDIRECTED PRN Saline Lock Insert [OM.PC] Stat Oth 04/10/20 18:28 Ordered Medication Orders Sodium Chloride (Saline Flush) 10 ml FLUSH ASDIRECTED PRN PRN Reason: Keep Vein Open Last Admin: 04/10/20 18:52 Dose: 10 ml Documented by: EVER Sodium Chloride (Saline Flush) 2.5 ml FLUSH ASDIRECTED PRN PRN Reason: Keep Vein Open Last Admin: 04/10/20 18:52 Dose: 2.5 ml Documented by: EVER Labs: Laboratory Tests 04/10/20 04/10/20 04/10/20 Range/Units 18:40 18:40 21:30 WBC 8.99 (4.0-11.0) K/uL RBC 4.65 (4.30-5.90) M/uL Hgb 14.2 (12.0-16.0) g/dL Hct 41.3 (36.0-46.0) % MCV 88.8 (80.0-98.0) fL MCH 30.5 (27.0-32.0) pg MCHC 34.4 (31.0-37.0) g/dL RDW Std Deviation 42.1 (28.0-62.0) fl RDW Coeff of Betzy 13 (11.0-15.0) % Plt Count 237 (150-400) K/uL MPV 11.50 (7.40-12.00) fL Neut % (Auto) 52.8 (48.0-80.0) % Lymph % (Auto) 35.5 (16.0-40.0) % [place] % (Auto) 9.6 (0.0-15.0) % Eos % (Auto) 1.8 (0.0-7.0) % Baso % (Auto) 0.3 (0.0-1.5) % Neut # (Auto) 4.8 (1.4-5.7) K/uL Lymph # (Auto) 3.2 H (0.6-2.4) K/uL [place] # (Auto) 0.9 H (0.0-0.8) K/uL Eos # (Auto) 0.2 (0.0-0.7) K/uL Baso # (Auto) 0.0 (0.0-0.1) K/uL Nucleated RBC % 0.0 /100WBC Nucleated RBCs # 0 K/uL Sodium 136 (136-145) mmol/L Potassium 2.9 L (3.5-5.1) mmol/L Chloride 98 (98-107) mmol/L Carbon Dioxide 27.1 (21.0-32.0) mmol/L BUN 13 (7.0-18.0) mg/dL Creatinine 0.8 (0.6-1.0) mg/dL Est Cr Clr Drug Dosing 76.54 mL/min Estimated GFR (MDRD) > 60.0 ml/min Glucose 123 H (74-106) mg/dL Calcium 10.0 (8.5-10.1) mg/dL Total Bilirubin 0.4 (0.2-1.0) mg/dL AST 33 (15-37) IU/L ALT 42 (14-63) IU/L Alkaline Phosphatase 75 (46-116) U/L Troponin I < 0.050 < 0.050 (0.000-0.056) ng/mL Total Protein 7.8 (6.4-8.2) g/dL Albumin 3.8 (3.4-5.0) g/dL Globulin 4.0 (2.6-4.0) g/dL Albumin/Globulin Ratio 0.9 (0.9-1.6) Meds: Medications Generic Name Dose Route Start Last Admin Trade Name Freq PRN Reason Stop Dose Admin Sodium Chloride 10 ml 04/10/20 18:28 04/10/20 18:52 Saline Flush FLUSH 10 ml ASDIRECTED PRN Administration Keep Vein Open Sodium Chloride 2.5 ml 04/10/20 18:28 04/10/20 18:52 Saline Flush FLUSH 2.5 ml ASDIRECTED PRN Administration Keep Vein Open Discontinued Medications Generic Name Dose Route Start Last Admin Trade Name Freq PRN Reason Stop Dose Admin Oxycodone/Acetaminophen 1 tab 04/10/20 19:52 04/10/20 20:06 Percocet 325-5 Mg PO 04/10/20 19:53 1 tab ONETIME ONE Administration Departure - Departure Time of Disposition: 22:09 Disposition: Home, Self-Care 01 Condition: Good Clinical Impression: Palpitations, Chest wall pain following surgery Instructions: Palpitations Referrals: PCP,None [Primary Care Provider] - Forms: ED Department Discharge Additional Instructions: Keep previously scheduled appointment for tomorrow with road worker. Take all medications as previously prescribed. Return to the ER with any new or worsening symptoms. The following information is given to patients seen in the emergency department who are being discharged to home. This information is to outline your options for follow-up care. We provide all patients seen in our emergency department with a follow-up referral. The need for follow-up, as well as the timing and circumstances, are variable depending upon the specifics of your emergency department visit. If you don't have a primary care physician on staff, we will provide you with a referral. We always advise you to contact your personal physician following an emergency department visit to inform them of the circumstance of the visit and for follow-up with them and/or the need for any referrals to a consulting specialist. The emergency department will also refer you to a specialist when appropriate. This referral assures that you have the opportunity for follow-up care with a specialist. All of these measure are taken in an effort to provide you with optimal care, which includes your follow-up. Under all circumstances we always encourage you to contact your private physician who remains a resource for coordinating your care. When calling for follow-up care, please make the office aware that this follow-up is from your recent emergency room visit. If for any reason you are refused follow-up, please contact the [facility] Emergency Department at and asked to speak to the emergency department charge nurse. Sepsis Event Note (ED) - Evaluation Sepsis Screening Result: No Definite Risk - Focused Exam Vital Signs: Vital Signs Temp Pulse Resp BP Pulse Ox 04/10/20 20:59 80 16 99/54 L 99 04/10/20 20:08 86 14 95/60 98 04/10/20 18:29 35.8 C L 89 20 108/77 100
--- NOTE | 2020-04-10 20:21 | CR ---
INDICATION: Chest pain TECHNIQUE: Chest 2 views COMPARISON: 03/21/2020 FINDINGS: Cardiovascular and mediastinum: Heart size and vasculature are normal in caliber and appearance. Pacemaker device is present. Lungs and pleural spaces: Lungs are clear. No sign of infiltrate or mass. No sign of pleural effusion. No pneumothorax. Bones and soft tissues: No significant findings. IMPRESSION: No acute findings and no significant changes from the prior exam. Dictated by Long Martinez MD @ Apr 10 2020 8:20PM Signed by Dr. Long Martinez @ Apr 10 2020 8:21PM
== END 2020-04-10 22:15 | disposition home or self-care (01) ==
LOC: MW.ED 18:23
DX: R07.89 Other chest pain (principal); G89.18 Other acute postprocedural pain; R00.2 Palpitations; I10 Essential (primary) hypertension; E78.00 Pure hypercholesterolemia, unspecified; Z95.5 Presence of coronary angioplasty implant and graft; Z90.49 Acquired absence of other specified parts of digestive tract; Z87.891 Personal history of nicotine dependence; Z88.0 Allergy status to penicillin; Z88.1 Allergy status to other antibiotic agents; Z88.2 Allergy status to sulfonamides; Z79.82 Long term (current) use of aspirin; Z79.899 Other long term (current) drug therapy
CPT/HCPCS: 36415; 71046; 80053; 84484; 85025; 93005; 99285; A9270; 99283

== ENCOUNTER 2020-05-28 19:32 | Emergency (ER) | payer BC ==
[2020-05-28 21:28] LABS: BLOOD UREA NITROGEN,BUN 12 mg/dL (7.0-18.0); CHLORIDE,CL 104 mmol/L (98-107); GLUCOSE RANDOM 142 mg/dL (74-106); POTASSIUM,K 3.8 mmol/L (3.5-5.1); SODIUM,NA 140 mmol/L (136-145)
--- NOTE | 2020-05-28 23:05 | CR ---
INDICATION: Chest pain. Shortness of breath. TECHNIQUE: Chest 1 view. COMPARISON: 04/10/2020 FINDINGS: Cardiovascular and mediastinum: Heart size and vasculature are normal in caliber and appearance. Mediastinum is within normal limits. Left chest pacing device and leads are stable. Lungs and pleural space: Lungs are clear. No pleural effusion. No pneumothorax. Bones and soft tissues: No acute findings. IMPRESSION: No acute pulmonary process. Dictated by Rafael Carrera MD @ May 28 2020 11:02PM Signed by Dr. Rafael Carrera @ May 28 2020 11:04PM
--- NOTE | 2020-05-28 23:11 | EDM.PDOC ---
ED HPI GENERAL MEDICAL PROBLEM - General Chief Complaint: Cardiovascular Problem Stated Complaint: DIZZNESS Time Seen by Provider: 05/28/20 22:47 - History of Present Illness INITIAL COMMENTS - FREE TEXT/NARRATIVE: CHIEF COMPLAINT(S): Chest pain HISTORY OF PRESENT ILLNESS: This is a 50-year-old with a past medical history of prior cardiac arrest and STEMI with subsequent pacemaker placement who comes to the emergency department with a chief complaint of chest pain. The patient states that for the last couple of days she has been experiencing sinus congestion and runny nose. She states that she started to experience chest pain in the center of her chest which she describes as mid central pressure. She denies any radiation of this pain. She states that this has been going on for approximately 4 days and feels like her sinus drainage is building up in her lungs. She states that this is different from her prior STEMI. She denies any radiation of the pain, relieving factors except that it has resolved while being in the emergency department. She denies any diaphoresis, nausea or vomiting. She denies any shortness of breath. She states that she goes to cardiac rehab 3 times a week and the chest pain has not been exacerbated by exercise. She denies any fevers or chills. REVIEW OF SYSTEMS: Constitutional: Denies fever, chills. Eyes: Denies eye pain Ears, Nose, Mouth, & Throat: Positive for runny nose Cardiovascular: Positive for chest pain Respiratory: Denies shortness of breath Gastrointestinal: Denies Nausea, vomiting, diarrhea, hematochezia. Genitourinary: Denies hematuria Skin:Denies a rash Neurological: Denies blurred vision, numbness, tingling, weakness Psychiatric: Denies depression PAST MEDICAL HISTORY: As per history of present illness and as reviewed below otherwise noncontributory. SURGICAL HISTORY: As per history of present illness and as reviewed below otherwise noncontributory. SOCIAL HISTORY: As per history of present illness and as reviewed below otherwise noncontributory. FAMILY HISTORY: As per history of present illness and as reviewed below otherwise noncontributory. EXAMINATION OF ORGAN SYSTEMS/BODY AREAS: Constitutional: Blood pressure is 105/72, heart rate 98, respiratory rate 18 with an oxygen saturation 97% on room air. Temperature 35.9 General: Overall well-appearing woman who is in no acute distress. Psychiatric: Appropriate mood and affect. Eyes: No scleral icterus or conjunctival erythema ENMT: Moist mucous membranes. No pharyngeal erythema Cardiovascular: Regular, rate, and rythym. No gallops, murmurs, or rubs. Bilateral upper extremity pulses symmetric and intact. No peripheral edema. No JVD. Respiratory: Lungs clear to auscultation bilaterally. No wheezes, rales, or rhonchi. Gastrointestinal: Soft, non-tender, non-distended. Normoactive bowel sounds Genitourinary: No suprapubic tenderness Musculoskeletal: Normal range of motion. Skin: No lesions or abrasions. Neurological: Alert, GCS 15 MEDICAL DECISION MAKING AND COURSE IN THE ED WITH INTERPRETATION/REVIEW OF DIAGNOSTIC STUDIES: This is a 50-year-old woman with a past medical history of prior STEMI and cardiac arrest who comes to the emergency department with 2 days of chest pain which she describes as pressure in the center of her chest who is currently asymptomatic with normal vital signs. At this time given her history will obtain a cardiac work-up. EKG was obtained which did not reveal any acute signs of ischemia. Twelve-lead EKG interpreted by myself. Normal sinus rhythm at a rate of 95beats per minute. Normal axis. MD interval is 159ms. QRS duration is 80ms. ST segments are normal without elevations or depressions. There are Q waves in leads I, aVL, V2 through V4. These appear to be unchanged from prior EKG dated 04/10/2020. Interpretation: Normal sinus rhythm with anterior lateral Q waves unchanged The radiological images were viewed by myself along with reading the report from the radiologist. Chest x-ray does not reveal any acute cardiopulmonary process. Laboratory: CBC reveals a mild leukocytosis of 11.16 otherwise unremarkable. Coags are within normal limits. BMP is unremarkable. Troponin is negative. BNP is 175. On reevaluation the patient continued to remain stable without any recurring chest pain. I did discuss with her at this time that given the duration of her symptoms and a negative troponin it is unlikely cardiac in nature. I did discuss with her that at this time she is high risk and that she need to follow- up with her logging operations inspector. She was amenable to discharge at this time and had no further questions. DISPOSITION: The patient was discharged home in stable condition. The patient will follow up with logging operations inspector within 1 week CONDITION: Fair PROCEDURES: None FINAL IMPRESSION(S)/DIAGNOSES: 1. Acute atypical chest pain Selvin Rodriguez M.D. mid chest Pain Score (Numeric/FACES): 4 - Related Data Allergies Allergy/AdvReac Type Severity Reaction Status Date / Time amoxicillin Allergy Rash Verified 05/28/20 19:47 Penicillins Allergy Rash Verified 05/28/20 19:47 Sulfa (Sulfonamide Allergy Vomiting Verified 05/28/20 19:47 Antibiotics) Home Meds: Home Meds Acetaminophen/Diphenhydramine [Tylenol Pm Ex-Strength Caplet] 1 each PO ASDIRECTED PRN 03/21/20 [History] Aspirin [Aspirin EC] 81 mg PO DAILY 03/21/20 [History] Metoprolol Succinate [Toprol XL] 12.5 mg PO DAILY 03/21/20 [History] Nitroglycerin 0.4 mg PO ASDIRECTED PRN 03/21/20 [History] Rosuvastatin Calcium [Crestor] 40 mg PO BEDTIME 03/21/20 [History] Furosemide [Lasix] 10 mg PO DAILY 04/10/20 [History] Spironolactone [Aldactone] 12.5 mg PO DAILY 04/10/20 [History] Ticagrelor [Brilinta] 90 mg PO BID 04/10/20 [History] Past Medical History HEENT History: Reports: None Cardiovascular History: Reports: High Cholesterol, Hypertension, Pacemaker, Stents Other Cardiovascular History: cardiac arrest january 2020 Respiratory History: Reports: None Gastrointestinal History: Reports: None Genitourinary History: Reports: None [employer] History: Reports: Musculoskeletal History: Reports: None Neurological History: Reports: None Psychiatric History: Reports: None Endocrine/Metabolic History: Reports: None Hematologic History: Reports: None Immunologic History: Reports: None Oncologic (Cancer) History: Reports: None Dermatologic History: Reports: None - Infectious Disease History Infectious Disease History: Reports: Chicken Pox - Past Surgical History Head Surgeries/Procedures: Reports: None HEENT Surgical History: Reports: Adenoidectomy, Myringotomy w Tube(s), Tonsillectomy Female Surgical History: Reports: Section Social & Family History - Family History Family Medical History: Noncontributory - Tobacco Use Smoking Status *Q: Former Smoker Used Tobacco, but Quit: Yes Month/Year Tobacco Last Used: January 2020 - Caffeine Use Caffeine Use: Reports: None ED ROS GENERAL - Review of Systems Review Of Systems: See Below ED EXAM, GENERAL - Physical Exam Exam: See Below Course - Vital Signs Last Recorded V/S: Last Vital Signs Temp 35.9 C L 05/28/20 19:44 Pulse 78 05/28/20 23:30 Resp 18 05/28/20 23:30 BP 107/65 05/28/20 23:30 Pulse Ox 98 05/28/20 23:30 - Orders/Labs/Meds Labs: Laboratory Tests 05/28/20 05/28/20 05/28/20 Range/Units 20:40 20:40 20:40 WBC 11.16 H (4.0-11.0) K/uL RBC 4.60 (4.30-5.90) M/uL Hgb 13.9 (12.0-16.0) g/dL Hct 43.8 (36.0-46.0) % MCV 95.2 (80.0-98.0) fL MCH 30.2 (27.0-32.0) pg MCHC 31.7 (31.0-37.0) g/dL RDW Std Deviation 46.3 (28.0-62.0) fl RDW Coeff of Betzy 13 (11.0-15.0) % Plt Count 230 (150-400) K/uL MPV 11.90 (7.40-12.00) fL Neut % (Auto) 57.5 (48.0-80.0) % Lymph % (Auto) 28.7 (16.0-40.0) % [place] % (Auto) 11.3 (0.0-15.0) % Eos % (Auto) 2.2 (0.0-7.0) % Baso % (Auto) 0.3 (0.0-1.5) % Neut # (Auto) 6.4 H (1.4-5.7) K/uL Lymph # (Auto) 3.2 H (0.6-2.4) K/uL [place] # (Auto) 1.3 H (0.0-0.8) K/uL Eos # (Auto) 0.2 (0.0-0.7) K/uL Baso # (Auto) 0.0 (0.0-0.1) K/uL Nucleated RBC % 0.0 /100WBC Nucleated RBCs # 0 K/uL INR 1.00 Sodium 140 (136-145) mmol/L Potassium 3.8 (3.5-5.1) mmol/L Chloride 104 (98-107) mmol/L Carbon Dioxide 27.0 (21.0-32.0) mmol/L BUN 12 (7.0-18.0) mg/dL Creatinine 0.8 (0.6-1.0) mg/dL Est Cr Clr Drug Dosing 75.70 mL/min Estimated GFR (MDRD) > 60.0 ml/min Glucose 142 H (74-106) mg/dL Calcium 9.6 (8.5-10.1) mg/dL Magnesium 2.2 (1.8-2.4) mg/dL Troponin I < 0.050 (0.000-0.056) ng/mL B-Natriuretic Peptide (<100) PG/ML Blood Type Antibody Screen 05/28/20 05/28/20 Range/Units 20:40 20:40 WBC (4.0-11.0) K/uL RBC (4.30-5.90) M/uL Hgb (12.0-16.0) g/dL Hct (36.0-46.0) % MCV (80.0-98.0) fL MCH (27.0-32.0) pg MCHC (31.0-37.0) g/dL RDW Std Deviation (28.0-62.0) fl RDW Coeff of Betzy (11.0-15.0) % Plt Count (150-400) K/uL MPV (7.40-12.00) fL Neut % (Auto) (48.0-80.0) % Lymph % (Auto) (16.0-40.0) % [place] % (Auto) (0.0-15.0) % Eos % (Auto) (0.0-7.0) % Baso % (Auto) (0.0-1.5) % Neut # (Auto) (1.4-5.7) K/uL Lymph # (Auto) (0.6-2.4) K/uL [place] # (Auto) (0.0-0.8) K/uL Eos # (Auto) (0.0-0.7) K/uL Baso # (Auto) (0.0-0.1) K/uL Nucleated RBC % /100WBC Nucleated RBCs # K/uL INR Sodium (136-145) mmol/L Potassium (3.5-5.1) mmol/L Chloride (98-107) mmol/L Carbon Dioxide (21.0-32.0) mmol/L BUN (7.0-18.0) mg/dL Creatinine (0.6-1.0) mg/dL Est Cr Clr Drug Dosing mL/min Estimated GFR (MDRD) ml/min Glucose (74-106) mg/dL Calcium (8.5-10.1) mg/dL Magnesium (1.8-2.4) mg/dL Troponin I (0.000-0.056) ng/mL B-Natriuretic Peptide 175 H (<100) PG/ML Blood Type O POSITIVE Antibody Screen NEGATIVE Departure - Departure Time of Disposition: 23:10 Disposition: Home, Self-Care 01 Condition: Fair Clinical Impression: Atypical chest pain Instructions: Nonspecific Chest Pain, Adult Referrals: Jacqueline Perkins MD [Primary Care Provider] - Forms: ED Department Discharge Additional Instructions: The patient is informed of any results of their evaluation and diagnostic workup and all questions are answered. They are given discharge instructions and return precautions. The patient is stable for discharge. The patient states they understand and agree with the plan and that they will return if their symptoms get worse or if they have any new concerns. The following information is given to patients seen in the emergency department who are being discharged to home. This information is to outline your options for follow-up care. We provide all patients seen in our emergency department with a follow-up referral. The need for follow-up, as well as the timing and circumstances, are variable depending upon the specifics of your emergency department visit. If you don't have a primary care physician on staff, we will provide you with a referral. We always advise you to contact your personal physician following an emergency department visit to inform them of the circumstance of the visit and for follow-up with them and/or the need for any referrals to a consulting specialist. The emergency department will also refer you to a specialist when appropriate. This referral assures that you have the opportunity for follow-up care with a specialist. All of these measure are taken in an effort to provide you with optimal care, which includes your follow-up. Under all circumstances we always encourage you to contact your private physician who remains a resource for coordinating your care. When calling for follow-up care, please make the office aware that this follow-up is from your recent emergency room visit. If for any reason you are refused follow-up, please contact the [facility] Emergency Department at and asked to speak to the emergency department charge nurse. Please follow-up with Dr. Jama within 1 week. Please return to the emergency department for any new or worsening symptoms. Sepsis Event Note (ED) - Evaluation Sepsis Screening Result: No Definite Risk - Focused Exam Vital Signs: Vital Signs Temp Pulse Resp BP Pulse Ox 05/28/20 23:30 78 18 107/65 98 05/28/20 19:44 35.9 C L 98 18 105/72 97
== END 2020-05-28 23:32 | disposition home or self-care (01) ==
LOC: MW.ED 19:32
DX: R07.89 Other chest pain (principal); E78.00 Pure hypercholesterolemia, unspecified; I10 Essential (primary) hypertension; Z95.5 Presence of coronary angioplasty implant and graft; Z88.1 Allergy status to other antibiotic agents; Z88.0 Allergy status to penicillin; Z88.2 Allergy status to sulfonamides; Z79.82 Long term (current) use of aspirin; Z79.899 Other long term (current) drug therapy; Z87.891 Personal history of nicotine dependence
CPT/HCPCS: 36415; 71045; 71045-26; 80048; 83735; 83880; 84484; 85025; 85610; 86850; 86900; 86901; 93005; 93010; 99283; 99285-25

== ENCOUNTER 2020-07-05 14:08 | Observation (INO) | payer BC ==
[2020-07-05] MEDS ORDERED: Sodium Chloride 0.9% 2.5 ML Syringe FLUSH PRN (14:27)
[2020-07-05] MEDS ORDERED: Sodium Chloride 0.9% 10 ML Syringe FLUSH PRN (14:27)
[2020-07-05 15:18] LABS: BLOOD UREA NITROGEN,BUN 13 mg/dL (7.0-18.0); CARBON DIOXIDE,CO2 27.1 mmol/L (21.0-32.0); CHLORIDE,CL 104 mmol/L (98-107); GLUCOSE RANDOM 135 mg/dL (74-106); POTASSIUM,K 3.7 mmol/L (3.5-5.1); SODIUM,NA 139 mmol/L (136-145)
--- NOTE | 2020-07-05 15:27 | CR ---
INDICATION: Shortness of breath TECHNIQUE: Chest 1 view. COMPARISON: 05/28/2020 FINDINGS: Cardiovascular and mediastinum: Heart size and vasculature are normal in caliber and appearance. Mediastinum is within normal limits. Single lead left-sided transvenous pacer device. Lungs and pleural space: Lungs are clear. No sign of infiltrate or mass. No sign of pleural effusion. No pneumothorax. Bones and soft tissues: No significant findings. IMPRESSION: Unremarkable chest. Dictated by Isra Sumner MD @ Jul 05 2020 3:25PM Signed by Dr. Isra Sumner @ Jul 05 2020 3:25PM
--- NOTE | 2020-07-05 15:28 | EDM.PDOC ---
ED HPI GENERAL MEDICAL PROBLEM - General Chief Complaint: Respiratory Problem Stated Complaint: SOB Time Seen by Provider: 07/05/20 14:10 Source of Information: Reports: Patient History Limitations: Reports: No Limitations - History of Present Illness INITIAL COMMENTS - FREE TEXT/NARRATIVE: HISTORY AND PHYSICAL: History of present illness: Patient is a 50-year-old female who presents to the ED today with concern of shortness of breath x2 days that worsened just prior to arrival to the ED and states that it is exertional and is also having palpitations. Patient states she has an extensive cardiac history and has had 2 prior cardiac arrests, 1 required CPR and then was shocked, and the other 1 occurred in the operating room of getting a pacemaker/ICD placed. Patient states that she has 2 cardiac stents placed earlier this year; one of her LAD and one of her RCA according to patient. Patient states that she follows with a system administrator in [place] and has another appointment at the beginning of August. Patient states since getting the pacemaker/ICD placed she has not had any issues and has never been shocked since the placement. Patient states even at her past heart attacks, she never had chest pain and had "atypical "symptoms so was concerned that her shortness of breath could be related to this. Patient states starting 2 days ago she began feeling more short of breath and was concerned she was "retaining fluid on her lungs ". Patient states that she is also felt some intermittent palpitations but states that she has not currently having this. Patient denies any other symptoms or concerns. Patient denies fever, chills, chest pain, or cough. Denies headache, neck stiff ness, change in vision, syncope, or near syncope. Denies nausea, vomiting, ab dominal pain, diarrhea, constipation, or dysuria. Has not noted any blood in urine or stool. Patient has been eating and drinking appropriately. Review of systems: As per history of present illness and below otherwise all systems reviewed and negative. Past medical history: As per history of present illness and as reviewed below otherwise noncontributory. Surgical history: As per history of present illness and as reviewed below otherwise noncontributory. Social history: See social history for further information Family history: As per history of present illness and as reviewed below otherwise noncontributory. Physical exam: General: Patient is alert, oriented, and in no acute distress. Patient laying comfortably on exam table. HEENT: Atraumatic, normocephalic, pupils equal and reactive bilaterally, negative for conjunctival pallor or scleral icterus, mucous membranes moist, TMs normal bilaterally, throat clear, neck supple, nontender, trachea midline. No drooling or trismus noted. No meningeal signs. No hot potato voice noted. Lungs: Clear to auscultation, breath sounds equal bilaterally, chest nontender. Heart: S1S2, regular rate and rhythm without overt murmur Abdomen: Soft, nondistended, nontender. Negative for masses or hepatosplenomegaly. Negative for costovertebral tenderness. Pelvis: Stable nontender. Genitourinary: Deferred. Rectal: Deferred. Skin: Intact, warm, dry. No lesions or rashes noted. Extremities: Atraumatic, negative for cords or calf pain. Neurovascular unremarkable. Neuro: Awake, alert, oriented. Cranial nerves II through XII unremarkable. C erebellum unremarkable. Motor and sensory unremarkable throughout. Exam nonfocal. Notes: HEART score 4. Dr. Juarez consulted on patient and will admit to observation on telemetry Voices understanding and is agreeable to plan of care. Denies any further questions or concerns at this time. Diagnostics: EKG, CBC, CMP, UA, chest x-ray, troponin, BNP, D-dimer, Covid Therapeutics: Saline lock Impression: Dyspnea, rule out ACS Palpitations Plan: Admit to observation of Dr. Juarez on telemetry Definitive disposition and diagnosis as appropriate pending reevaluation and review of above. Chest Pain Score (Numeric/FACES): 3 - Related Data Allergies Allergy/AdvReac Type Severity Reaction Status Date / Time amoxicillin Allergy Rash Verified 07/05/20 18:10 Penicillins Allergy Rash Verified 07/05/20 18:10 Sulfa (Sulfonamide Allergy Vomiting Verified 07/05/20 18:10 Antibiotics) Home Meds: Home Meds Acetaminophen/Diphenhydramine [Tylenol Pm Ex-Strength Caplet] 1 each PO ASDIRECTED PRN 03/21/20 [History] Aspirin [Aspirin EC] 81 mg PO DAILY 03/21/20 [History] Metoprolol Succinate [Toprol XL] 12.5 mg PO DAILY 03/21/20 [History] Nitroglycerin 0.4 mg PO ASDIRECTED PRN 03/21/20 [History] Rosuvastatin Calcium [Crestor] 40 mg PO BEDTIME 03/21/20 [History] Furosemide [Lasix] 10 mg PO DAILY 04/10/20 [History] Spironolactone [Aldactone] 12.5 mg PO DAILY 04/10/20 [History] Ticagrelor [Brilinta] 90 mg PO BID 04/10/20 [History] Past Medical History HEENT History: Reports: None Cardiovascular History: Reports: High Cholesterol, Hypertension, Pacemaker, Stents Other Cardiovascular History: cardiac arrest january 2020 and on April 05, 2020. 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 CHECKER History: Reports: Musculoskeletal History: Reports: None Neurological History: Reports: None Psychiatric History: Reports: None Endocrine/Metabolic History: Reports: None Hematologic History: Reports: None Immunologic History: Reports: None Oncologic (Cancer) History: Reports: None Dermatologic History: Reports: None - Infectious Disease History Infectious Disease History: Reports: Chicken Pox, Scarlet Fever - Past Surgical History Head Surgeries/Procedures: Reports: None HEENT Surgical History: Reports: Adenoidectomy, Myringotomy w Tube(s), Tonsillectomy Female Surgical History: Reports: Section Social & Family History - Family History Family Medical History: No Pertinent Family History - Tobacco Use Tobacco Use Status *Q: Former Tobacco User Used Tobacco, but Quit: Yes Month/Year Tobacco Last Used: 01/2020 - Caffeine Use Caffeine Use: Reports: Coffee - Recreational Drug Use Recreational Drug Use: No ED ROS GENERAL - Review of Systems Review Of Systems: Comprehensive ROS is negative, except as noted in HPI. ED EXAM, GENERAL - Physical Exam Exam: See Below (see dictation) Course - Vital Signs Last Recorded V/S: Last Vital Signs Temp 96.8 F L 07/05/20 18:08 Pulse 78 07/05/20 18:08 Resp 18 07/05/20 18:08 BP 112/77 07/05/20 18:08 Pulse Ox 95 07/05/20 18:08 - Orders/Labs/Meds Orders: Active Orders 24 hr Category Date Time Status CULTURE URINE [RM] Stat Lab 07/05/20 18:49 Received Sodium Chloride 0.9% [Saline Flush] Med 07/05/20 14:27 Active 10 ml FLUSH ASDIRECTED PRN Sodium Chloride 0.9% [Saline Flush] Med 07/05/20 14:27 Active 2.5 ml FLUSH ASDIRECTED PRN Saline Lock Insert [OM.PC] Stat Oth 07/05/20 14:27 Ordered Medication Orders Acetaminophen (Tylenol) 650 mg PO Q4H PRN PRN Reason: Pain (Mild 1-3)/fever Last Admin: 07/05/20 19:38 Dose: 650 mg Documented by: VANDANA Aspirin (Halfprin) 81 mg PO DAILY KUN Enoxaparin Sodium (Lovenox) 40 mg SUBCUT Q24H KUN Last Admin: 07/05/20 18:45 Dose: 40 mg Documented by: [id number] Furosemide (Lasix) 10 mg PO DAILY KUN Metoprolol Succinate (Toprol Xl) 12.5 mg PO DAILY [facility] Nitroglycerin (Nitrostat) 0.4 mg SL ASDIRECTED PRN PRN Reason: Chest Pain Non-Formulary Medication (Rosuvastatin Calcium [Crestor]) 40 mg PO BEDTIME KUN Non-Formulary Medication (Ticagrelor) 90 mg PO BID [facility] Ondansetron HCl (Zofran) 4 mg IVPUSH Q4H PRN PRN Reason: Nausea Pantoprazole Sodium (Protonix) 40 mg PO DAILY [facility] Sodium Chloride (Saline Flush) 10 ml FLUSH ASDIRECTED PRN PRN Reason: Keep Vein Open Last Admin: 07/05/20 14:40 Dose: 10 ml Documented by: KEEGAN Sodium Chloride (Saline Flush) 2.5 ml FLUSH ASDIRECTED PRN PRN Reason: Keep Vein Open Last Admin: 07/05/20 14:40 Dose: 2.5 ml Documented by: KEEGAN Spironolactone (Aldactone) 12.5 mg PO DAILY [facility] Labs: Laboratory Tests 07/05/20 07/05/20 07/05/20 Range/Units 14:38 14:38 14:38 WBC 9.06 (4.0-11.0) K/uL RBC 4.88 (4.30-5.90) M/uL Hgb 14.6 (12.0-16.0) g/dL Hct 45.5 (36.0-46.0) % MCV 93.2 (80.0-98.0) fL MCH 29.9 (27.0-32.0) pg MCHC 32.1 (31.0-37.0) g/dL RDW Std Deviation 44.3 (28.0-62.0) fl RDW Coeff of Betzy 13 (11.0-15.0) % Plt Count 242 (150-400) K/uL MPV 11.80 (7.40-12.00) fL Neut % (Auto) 61.7 (48.0-80.0) % Lymph % (Auto) 28.3 (16.0-40.0) % [place] % (Auto) 8.6 (0.0-15.0) % Eos % (Auto) 1.2 (0.0-7.0) % Baso % (Auto) 0.2 (0.0-1.5) % Neut # (Auto) 5.6 (1.4-5.7) K/uL Lymph # (Auto) 2.6 H (0.6-2.4) K/uL [place] # (Auto) 0.8 (0.0-0.8) K/uL Eos # (Auto) 0.1 (0.0-0.7) K/uL Baso # (Auto) 0.0 (0.0-0.1) K/uL Nucleated RBC % 0.0 /100WBC Nucleated RBCs # 0 K/uL D-Dimer, Quantitative (0.0-0.50) mg/L FEU Sodium 139 (136-145) mmol/L Potassium 3.7 (3.5-5.1) mmol/L Chloride 104 (98-107) mmol/L Carbon Dioxide 27.1 (21.0-32.0) mmol/L BUN 13 (7.0-18.0) mg/dL Creatinine 0.9 (0.6-1.0) mg/dL Est Cr Clr Drug Dosing 67.29 mL/min Estimated GFR (MDRD) > 60.0 ml/min Glucose 135 H (74-106) mg/dL Calcium 9.3 (8.5-10.1) mg/dL Total Bilirubin 0.5 (0.2-1.0) mg/dL AST 19 (15-37) IU/L ALT 30 (14-63) IU/L Alkaline Phosphatase 61 (46-116) U/L Troponin I < 0.050 (0.000-0.056) ng/mL B-Natriuretic Peptide 178 H (<100) PG/ML Total Protein 7.5 (6.4-8.2) g/dL Albumin 3.7 (3.4-5.0) g/dL Globulin 3.8 (2.6-4.0) g/dL Albumin/Globulin Ratio 1.0 (0.9-1.6) SARS-CoV-2 RNA (GUSTAVO) (NEGATIVE) 07/05/20 07/05/20 Range/Units 14:38 14:41 WBC (4.0-11.0) K/uL RBC (4.30-5.90) M/uL Hgb (12.0-16.0) g/dL Hct (36.0-46.0) % MCV (80.0-98.0) fL MCH (27.0-32.0) pg MCHC (31.0-37.0) g/dL RDW Std Deviation (28.0-62.0) fl RDW Coeff of Betzy (11.0-15.0) % Plt Count (150-400) K/uL MPV (7.40-12.00) fL Neut % (Auto) (48.0-80.0) % Lymph % (Auto) (16.0-40.0) % [place] % (Auto) (0.0-15.0) % Eos % (Auto) (0.0-7.0) % Baso % (Auto) (0.0-1.5) % Neut # (Auto) (1.4-5.7) K/uL Lymph # (Auto) (0.6-2.4) K/uL [place] # (Auto) (0.0-0.8) K/uL Eos # (Auto) (0.0-0.7) K/uL Baso # (Auto) (0.0-0.1) K/uL Nucleated RBC % /100WBC Nucleated RBCs # K/uL D-Dimer, Quantitative 0.42 (0.0-0.50) mg/L FEU Sodium (136-145) mmol/L Potassium (3.5-5.1) mmol/L Chloride (98-107) mmol/L Carbon Dioxide (21.0-32.0) mmol/L BUN (7.0-18.0) mg/dL Creatinine (0.6-1.0) mg/dL Est Cr Clr Drug Dosing mL/min Estimated GFR (MDRD) ml/min Glucose (74-106) mg/dL Calcium (8.5-10.1) mg/dL Total Bilirubin (0.2-1.0) mg/dL AST (15-37) IU/L ALT (14-63) IU/L Alkaline Phosphatase (46-116) U/L Troponin I (0.000-0.056) ng/mL B-Natriuretic Peptide (<100) PG/ML Total Protein (6.4-8.2) g/dL Albumin (3.4-5.0) g/dL Globulin (2.6-4.0) g/dL Albumin/Globulin Ratio (0.9-1.6) SARS-CoV-2 RNA (GUSTAVO) NEGATIVE (NEGATIVE) Meds: Medications Generic Name Dose Route Start Last Admin Trade Name Freq PRN Reason Stop Dose Admin Acetaminophen 650 mg 07/05/20 18:04 07/05/20 19:38 Tylenol PO 650 mg Q4H PRN Administration Pain (Mild 1-3)/fever Aspirin 81 mg 07/06/20 09:00 Halfprin PO DAILY [facility] Enoxaparin Sodium 40 mg 07/05/20 18:15 07/05/20 18:45 Lovenox SUBCUT 40 mg Q24H KUN Administration Furosemide 10 mg 07/06/20 09:00 Lasix PO DAILY [facility] Metoprolol Succinate 12.5 mg 07/06/20 09:00 Toprol Xl PO DAILY [facility] Nitroglycerin 0.4 mg 07/05/20 18:14 Nitrostat SL ASDIRECTED PRN Chest Pain Non-Formulary Medication 40 mg 07/05/20 21:00 Rosuvastatin Calcium [Crestor] PO BEDTIME KUN Non-Formulary Medication 90 mg 07/05/20 21:00 Ticagrelor PO BID KUN Ondansetron HCl 4 mg 07/05/20 18:04 Zofran IVPUSH Q4H PRN Nausea Pantoprazole Sodium 40 mg 07/06/20 09:00 Protonix PO DAILY [facility] Sodium Chloride 10 ml 07/05/20 14:27 07/05/20 14:40 Saline Flush FLUSH 10 ml ASDIRECTED PRN Administration Keep Vein Open Sodium Chloride 2.5 ml 07/05/20 14:27 07/05/20 14:40 Saline Flush FLUSH 2.5 ml ASDIRECTED PRN Administration Keep Vein Open Spironolactone 12.5 mg 07/06/20 09:00 Aldactone PO DAILY KUN Discontinued Medications Generic Name Dose Route Start Last Admin Trade Name Freq PRN Reason Stop Dose Admin Influenza Virus Vaccine 1 each 07/05/20 19:15 Pharmacy To Dose - Influenza Vaccine IM 07/05/20 19:16 ONETIME ONE Pneumococcal Polyvalent Vaccine 25 mcg 07/05/20 19:30 Pneumovax 23 IM 07/05/20 19:31 .ONCE ONE Departure - Departure Time of Disposition: 20:11 Disposition: Refer to Observation Clinical Impression: Palpitations Dyspnea Qualifiers: Dyspnea type: unspecified Qualified Code(s): R06.00 - Dyspnea, unspecified - Discharge Information Sepsis Event Note (ED) - Evaluation Sepsis Screening Result: No Definite Risk - Focused Exam Vital Signs: Vital Signs Temp Pulse Resp BP Pulse Ox 07/05/20 16:30 70 14 124/79 97 07/05/20 14:19 96.1 F L 87 16 120/81 97 - My Orders Last 24 Hours: My Active Orders 07/05/20 14:27 Sodium Chloride 0.9% [Saline Flush] 10 ml FLUSH ASDIRECTED PRN Sodium Chloride 0.9% [Saline Flush] 2.5 ml FLUSH ASDIRECTED PRN Saline Lock Insert [OM.PC] Stat 07/05/20 18:49 CULTURE URINE [RM] Stat - Assessment/Plan Last 24 Hours: My Active Orders 07/05/20 14:27 Sodium Chloride 0.9% [Saline Flush] 10 ml FLUSH ASDIRECTED PRN Sodium Chloride 0.9% [Saline Flush] 2.5 ml FLUSH ASDIRECTED PRN Saline Lock Insert [OM.PC] Stat 07/05/20 18:49 CULTURE URINE [RM] Stat
--- NOTE | 2020-07-05 16:47 | PCM.SN.2 ---
#1 Interpretation EKG Date: 07/05/20 Time: 14:42 Rhythm: NSR Rate (Beats/Min): 80 [place]: Normal P-Wave: Present QRS: Normal ST-T: Normal QT: Normal TN/PQ Interval: 160 Comparison: NA - No Prior EKG
[2020-07-05] MEDS ORDERED: Ondansetron 4 MG/2 ML SDV IVPUSH PRN (18:04)
[2020-07-05] MEDS ORDERED: Acetaminophen 325 MG Tab PO PRN (18:04)
[2020-07-05] MEDS ORDERED: Nitroglycerin 0.4 MG Tab.SL SL PRN (18:14)
[2020-07-05] MEDS ORDERED: Enoxaparin 40 MG/0.4 ML Syringe SUBCUT SCH (18:15)
--- NOTE | 2020-07-05 18:25 | PCM.HP.2 ---
H&P History of Present Illness - General Date of Service: 07/05/20 Admit Problem/Dx: Admission Diagnosis/Problem Admission Diagnosis/Problem Dyspnea Source of Information: Patient History Limitations: Reports: No Limitations - History of Present Illness Initial Comments - Free Text/Narative: Pt is a 50-year-old female with a significant PMHX of CAD, HTN, HLD, recent NV with 2x stent placement in LAD and RCA; followed by a pacemaker and ICD. Pt follows with Dr. Jama in [place], [place]. She presented with s.o.b, palpitations, and mid epigastric/substernal pressure since last night. Noted to be intermittent in nature. Once last night and once this morning. Denies any associated symptoms such as chest pain, any radiation, dizziness, weakness, nausea, vomiting, diarrhea, fever, chills, cough or sputum production, or swelling in her back or extremities. Pt denies any alleviating or aggravating factors. Shares that she was concerned she was "retaining fluid on her lungs ". Onset of Symptoms: Reports: Today Chest Pain Score (Numeric/FACES): 3 - Related Data Allergies/Adverse Reactions: Allergies Allergy/AdvReac Type Severity Reaction Status Date / Time amoxicillin Allergy Rash Verified 07/05/20 18:10 Penicillins Allergy Rash Verified 07/05/20 18:10 Sulfa (Sulfonamide Allergy Vomiting Verified 07/05/20 18:10 Antibiotics) Home Medications: Home Meds Acetaminophen/Diphenhydramine [Tylenol Pm Ex-Strength Caplet] 1 each PO ASDIRECTED PRN 03/21/20 [History] Aspirin [Aspirin EC] 81 mg PO DAILY 03/21/20 [History] Metoprolol Succinate [Toprol XL] 12.5 mg PO DAILY 03/21/20 [History] Nitroglycerin 0.4 mg PO ASDIRECTED PRN 03/21/20 [History] Rosuvastatin Calcium [Crestor] 40 mg PO BEDTIME 03/21/20 [History] Furosemide [Lasix] 10 mg PO DAILY 04/10/20 [History] Spironolactone [Aldactone] 12.5 mg PO DAILY 04/10/20 [History] Ticagrelor [Brilinta] 90 mg PO BID 04/10/20 [History] Past Medical History HEENT History: Reports: None Cardiovascular History: Reports: High Cholesterol, Hypertension, Pacemaker, Stents Other Cardiovascular History: cardiac arrest january 2020 and on April 05, 2020. 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: Musculoskeletal History: Reports: None Neurological History: Reports: None Psychiatric History: Reports: None Endocrine/Metabolic History: Reports: None Hematologic History: Reports: None Immunologic History: Reports: None Oncologic (Cancer) History: Reports: None Dermatologic History: Reports: None - Infectious Disease History Infectious Disease History: Reports: Chicken Pox, Scarlet Fever - Past Surgical History Head Surgeries/Procedures: Reports: None HEENT Surgical History: Reports: Adenoidectomy, Myringotomy w Tube(s), Tonsillectomy Female Surgical History: Reports: Section Social & Family History - Family History Family Medical History: No Pertinent Family History - Tobacco Use Tobacco Use Status *Q: Former Tobacco User Years of Tobacco use: 33 Packs/Tins Daily: 1 Used Tobacco, but Quit: Yes Month/Year Tobacco Last Used: 10/2019 Tobacco Use Comment: Pt states "I quit smoking February 052019." Second Hand Smoke Exposure: No - Caffeine Use Caffeine Use: Reports: Soda - Recreational Drug Use Recreational Drug Use: No H&P Review of Systems - Review of Systems: Review Of Systems: Comprehensive ROS is negative, except as noted in HPI. Cardiovascular: Reports: Palpitations. Denies: Chest Pain, Dyspnea on Exertion, Orthopnea, PND, Edema, Lightheadedness, Syncope, Claudication, Blood Pressure Problem Exam - Exam Exam: See Below - Vital Signs Vital Signs: Last Vital Signs Temp 96.8 F L 07/05/20 18:08 Pulse 78 07/05/20 18:08 Resp 18 07/05/20 18:08 BP 112/77 07/05/20 18:08 Pulse Ox 95 07/05/20 18:08 Weight: 141 lb - Exam Quality Assessment: DVT Prophylaxis General: Alert, Oriented, Cooperative HEENT: Conjunctiva Clear, EACs Clear, EOMI, Hearing Intact, Mucosa Moist & [place], Nares Patent, Pupils Equal, PERRLA Neck: Supple, Trachea Midline. No: Lymphadenopathy, Carotid Bruit, JVD, Thyromegaly Lungs: Clear to Auscultation, Normal Respiratory Effort. No: Crackles, Rales, Rhonchi, Rub, Stridor, Wheezing Cardiovascular: Regular Rate, Regular Rhythm, Normal S1, Normal S2 GI/Abdominal Exam: Normal Bowel Sounds, Soft, Non-Tender Extremities: Normal Inspection, Normal Range of Motion, No Pedal Edema, Normal Capillary Refill Peripheral Pulses: 2+: Radial (L), Radial (R), Dorsalis Pedis (L), Dorsalis Pedis (R) Skin: Warm, Dry Neurological: Cranial Nerves Intact, Reflexes Equal Bilateral Neuro Extensive - Mental Status: Alert, Oriented x3, Normal Mood/Affect, Normal Cognition, Memory Intact Neuro Extensive - Motor, Sensory, Reflexes: CN II-XII Intact, Normal Gait, Normal Reflexes Psychiatric: Alert, Normal Affect, Normal Mood - Patient Data Lab Results Last 24 hrs: Laboratory Results - last 24 hr 07/05/20 07/05/20 07/05/20 Range/Units 14:38 14:38 14:38 WBC 9.06 (4.0-11.0) K/uL RBC 4.88 (4.30-5.90) M/uL Hgb 14.6 (12.0-16.0) g/dL Hct 45.5 (36.0-46.0) % MCV 93.2 (80.0-98.0) fL MCH 29.9 (27.0-32.0) pg MCHC 32.1 (31.0-37.0) g/dL RDW Std Deviation 44.3 (28.0-62.0) fl RDW Coeff of Betzy 13 (11.0-15.0) % Plt Count 242 (150-400) K/uL MPV 11.80 (7.40-12.00) fL Neut % (Auto) 61.7 (48.0-80.0) % Lymph % (Auto) 28.3 (16.0-40.0) % Bennett % (Auto) 8.6 (0.0-15.0) % Eos % (Auto) 1.2 (0.0-7.0) % Baso % (Auto) 0.2 (0.0-1.5) % Neut # (Auto) 5.6 (1.4-5.7) K/uL Lymph # (Auto) 2.6 H (0.6-2.4) K/uL Bennett # (Auto) 0.8 (0.0-0.8) K/uL Eos # (Auto) 0.1 (0.0-0.7) K/uL Baso # (Auto) 0.0 (0.0-0.1) K/uL Nucleated RBC % 0.0 /100WBC Nucleated RBCs # 0 K/uL D-Dimer, Quantitative (0.0-0.50) mg/L FEU Sodium 139 (136-145) mmol/L Potassium 3.7 (3.5-5.1) mmol/L Chloride 104 (98-107) mmol/L Carbon Dioxide 27.1 (21.0-32.0) mmol/L BUN 13 (7.0-18.0) mg/dL Creatinine 0.9 (0.6-1.0) mg/dL Est Cr Clr Drug Dosing 67.29 mL/min Estimated GFR (MDRD) > 60.0 ml/min Glucose 135 H (74-106) mg/dL Calcium 9.3 (8.5-10.1) mg/dL Total Bilirubin 0.5 (0.2-1.0) mg/dL AST 19 (15-37) IU/L ALT 30 (14-63) IU/L Alkaline Phosphatase 61 (46-116) U/L Troponin I < 0.050 (0.000-0.056) ng/mL B-Natriuretic Peptide 178 H (<100) PG/ML Total Protein 7.5 (6.4-8.2) g/dL Albumin 3.7 (3.4-5.0) g/dL Globulin 3.8 (2.6-4.0) g/dL Albumin/Globulin Ratio 1.0 (0.9-1.6) SARS-CoV-2 RNA (GUSTAVO) (NEGATIVE) 07/05/20 07/05/20 Range/Units 14:38 14:41 WBC (4.0-11.0) K/uL RBC (4.30-5.90) M/uL Hgb (12.0-16.0) g/dL Hct (36.0-46.0) % MCV (80.0-98.0) fL MCH (27.0-32.0) pg MCHC (31.0-37.0) g/dL RDW Std Deviation (28.0-62.0) fl RDW Coeff of Betzy (11.0-15.0) % Plt Count (150-400) K/uL MPV (7.40-12.00) fL Neut % (Auto) (48.0-80.0) % Lymph % (Auto) (16.0-40.0) % Bennett % (Auto) (0.0-15.0) % Eos % (Auto) (0.0-7.0) % Baso % (Auto) (0.0-1.5) % Neut # (Auto) (1.4-5.7) K/uL Lymph # (Auto) (0.6-2.4) K/uL Bennett # (Auto) (0.0-0.8) K/uL Eos # (Auto) (0.0-0.7) K/uL Baso # (Auto) (0.0-0.1) K/uL Nucleated RBC % /100WBC Nucleated RBCs # K/uL D-Dimer, Quantitative 0.42 (0.0-0.50) mg/L FEU Sodium (136-145) mmol/L Potassium (3.5-5.1) mmol/L Chloride (98-107) mmol/L Carbon Dioxide (21.0-32.0) mmol/L BUN (7.0-18.0) mg/dL Creatinine (0.6-1.0) mg/dL Est Cr Clr Drug Dosing mL/min Estimated GFR (MDRD) ml/min Glucose (74-106) mg/dL Calcium (8.5-10.1) mg/dL Total Bilirubin (0.2-1.0) mg/dL AST (15-37) IU/L ALT (14-63) IU/L Alkaline Phosphatase (46-116) U/L Troponin I (0.000-0.056) ng/mL B-Natriuretic Peptide (<100) PG/ML Total Protein (6.4-8.2) g/dL Albumin (3.4-5.0) g/dL Globulin (2.6-4.0) g/dL Albumin/Globulin Ratio (0.9-1.6) SARS-CoV-2 RNA (GUSTAVO) NEGATIVE (NEGATIVE) Result Diagrams: 07/05/20 14:38 07/05/20 14:38 Sepsis Event Note - Evaluation Sepsis Screening Result: No Definite Risk - Focused Exam Vital Signs: Vital Signs Temp Pulse Resp BP Pulse Ox 07/05/20 18:08 96.8 F L 78 18 112/77 95 07/05/20 17:27 76 14 120/84 97 07/05/20 16:51 78 20 136/86 97 07/05/20 16:30 70 14 124/79 97 07/05/20 14:19 96.1 F L 87 16 120/81 97 - Problem List (1) Atypical chest pain SNOMED Code(s): 054393851 ICD Code: R07.89 - OTHER CHEST PAIN Status: Acute Current Visit: No (2) Palpitations SNOMED Code(s): 99924122 ICD Code: R00.2 - PALPITATIONS Status: Acute Current Visit: No Problem List Initiated/Reviewed/Updated: Yes Orders Last 24hrs: Active Orders 24 hr Category Date Time Status Admission Status [Patient Status] [ADT] Stat ADT 07/05/20 16:50 Active Cardiac Monitoring [RC] . DIRECTED Care 07/05/20 14:27 Active Oxygen Therapy [RC] PRN Care 07/05/20 18:04 Ordered Up ad Bijal [RC] ASDIRECTED Care 07/05/20 18:04 Ordered VTE/DVT Education [RC] PER UNIT ROUTINE Care 07/05/20 18:04 Ordered Vital Signs [RC] Q4H Care 07/05/20 18:04 Ordered Heart Healthy Diet [DIET] Diet 07/05/20 Dinner Ordered CBC WITH AUTO DIFF [HEME] AM Lab 07/06/20 05:11 Ordered COMPREHENSIVE METABOLIC PN,CMP [CHEM] AM Lab 07/06/20 05:11 Ordered MAGNESIUM [CHEM] AM Lab 07/06/20 05:11 Ordered PHOSPHORUS [CHEM] AM Lab 07/06/20 05:11 Ordered UA RFX DIANNE AND CULT IF INDIC [URIN] Stat Lab 07/05/20 14:27 Ordered Acetaminophen [TylenoL] Med 07/05/20 18:04 Ordered 650 mg PO Q4H PRN Aspirin [Halfprin] Med 07/06/20 09:00 Ordered 81 mg PO DAILY Enoxaparin [Lovenox] Med 07/05/20 18:15 Ordered 40 mg SUBCUT Q24H Furosemide [Lasix] Med 07/06/20 09:00 Ordered 10 mg PO DAILY Metoprolol Succinate [Toprol XL] Med 07/06/20 09:00 Ordered 12.5 mg PO DAILY Nitroglycerin [Nitrostat] Med 07/05/20 18:14 Ordered 0.4 mg SL ASDIRECTED PRN Ondansetron [Zofran] Med 07/05/20 18:04 Ordered 4 mg IVPUSH Q4H PRN Pantoprazole [ProTONIX] Med 07/06/20 09:00 Ordered 40 mg PO DAILY Rosuvastatin Calcium [Crestor] Med 07/05/20 21:00 Ordered 40 mg PO BEDTIME Sodium Chloride 0.9% [Saline Flush] Med 07/05/20 14:27 Active 10 ml FLUSH ASDIRECTED PRN Sodium Chloride 0.9% [Saline Flush] Med 07/05/20 14:27 Active 2.5 ml FLUSH ASDIRECTED PRN Spironolactone [Aldactone] Med 07/06/20 09:00 Ordered 12.5 mg PO DAILY Ticagrelor Med 07/05/20 21:00 Ordered 90 mg PO BID Saline Lock Insert [OM.PC] Stat Oth 07/05/20 14:27 Ordered Resuscitation Status Routine Resus Stat 07/05/20 18:04 Ordered Medication Orders Acetaminophen (Tylenol) 650 mg PO Q4H PRN PRN Reason: Pain (Mild 1-3)/fever Aspirin (Halfprin) 81 mg PO DAILY KUN Enoxaparin Sodium (Lovenox) 40 mg SUBCUT Q24H KUN Furosemide (Lasix) 10 mg PO DAILY [facility] Metoprolol Succinate (Toprol Xl) 12.5 mg PO DAILY KUN Nitroglycerin (Nitrostat) 0.4 mg SL ASDIRECTED PRN PRN Reason: Chest Pain Non-Formulary Medication (Rosuvastatin Calcium [Crestor]) 40 mg PO BEDTIME KUN Non-Formulary Medication (Ticagrelor) 90 mg PO BID KUN Ondansetron HCl (Zofran) 4 mg IVPUSH Q4H PRN PRN Reason: Nausea Pantoprazole Sodium (Protonix) 40 mg PO DAILY KUN Sodium Chloride (Saline Flush) 10 ml FLUSH ASDIRECTED PRN PRN Reason: Keep Vein Open Last Admin: 07/05/20 14:40 Dose: 10 ml Documented by: FEDLKER Sodium Chloride (Saline Flush) 2.5 ml FLUSH ASDIRECTED PRN PRN Reason: Keep Vein Open Last Admin: 07/05/20 14:40 Dose: 2.5 ml Documented by: KEEGAN Spironolactone (Aldactone) 12.5 mg PO DAILY [facility] Assessment/Plan Comment:: Pt is a 50 y/o F with extensive cardiac hx, admitted for atypical chest pain and palpitations. 1. Atypical Chest Pain: negative trops, negative EKG, BNP 178H, within normal limits -CXR was normal -EKG on admission was normal -continue to monitor pt on tele -Trend troponin Q6H x3 -Consult in Cardiology, consider cardiac stress test/ evaluation of ICD (IDC/ Pacemaker infor listed below) -HH diet 2. Palpitations: continuous monitoring on tele. Consult Dr. Sorto in cardiology to consider investigation of her pacemaker/ICD. 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
[2020-07-05] MEDS ORDERED: Pneumococcal 23-Valent Conjugate Vaccine 0.5 ML Syringe IM ONE (19:30)
[2020-07-05] MEDS ORDERED: Non-Formulary Medication 1 Each (Ticagrelor 90 MG) PO SCH (21:00)
[2020-07-05] MEDS ORDERED: ROSUVASTATIN CALCIUM 40 MG PO SCH (21:00)
[2020-07-05] MEDS ORDERED: Rosuvastatin 10 MG Tab PO SCH (21:45)
[2020-07-06 05:46] LABS: CARBON DIOXIDE,CO2 25.7 mmol/L (21.0-32.0); POTASSIUM,K 3.7 mmol/L (3.5-5.1)
[2020-07-06] MEDS ORDERED: Aspirin 81 MG Tab.EC PO SCH (09:00)
[2020-07-06] MEDS ORDERED: Furosemide 20 MG Tab PO SCH (09:00)
[2020-07-06] MEDS ORDERED: Pantoprazole 40 MG Tab.CR PO SCH (09:00)
[2020-07-06] MEDS ORDERED: Pneumococcal 23-Valent Conjugate Vaccine 0.5 ML Syringe IM ONE (09:00)
[2020-07-06] MEDS ORDERED: Spironolactone 25 MG Tab PO SCH (09:00)
[2020-07-06] MEDS ORDERED: Metoprolol Succinate 25 MG Tab.ER PO SCH (09:00)
--- NOTE | 2020-07-06 13:35 | PCM.DCSUM1 ---
Discharge Summary - Hospital Course Brief History: Pt is a 50-year-old female with a significant PMHX of CAD, HTN, HLD, recent ND with 2x stent placement in LAD and RCA; followed by a pacemaker and ICD. Pt follows with Dr. Jama in [place]. She presented with s.o.b, palpitations, and mid epigastric/substernal pressure since last night. Noted to be intermittent in nature. Once last night and once this morning. Denies any associated symptoms such as chest pain, any radiation, dizziness, weakness, nausea, vomiting, diarrhea, fever, chills, cough or sputum production, or swelling in her back or extremities. Pt denies any alleviating or aggravating factors. Shares that she was concerned she was "retaining fluid on her lungs ". Diagnosis: Stroke: No - Discharge Data Discharge Date: 07/06/20 Discharge Disposition: Home, Self-Care 01 Condition: Good - Referral to Home Health Primary Care Physician: Jacqueline Perkins MD - Discharge Diagnosis/Problem(s) (1) Atypical chest pain SNOMED Code(s): 623042300 ICD Code: R07.89 - OTHER CHEST PAIN Status: Acute Current Visit: No (2) Palpitations SNOMED Code(s): 57122495 ICD Code: R00.2 - PALPITATIONS Status: Acute Current Visit: Yes - Patient Summary/Data Hospital Course: Pt was admitted for s.o.b, intermittent palpitations and mid epigastric/substernal pain and pressure. Extensive cardiac workup was completed with negative CXR, Troponin's, Telemetry monitoring. Cardiology was consulted for review of her pacemaker and ICD. No abnormalities were noted. It was suggested per cardiology to continue with 12.5 Metoprolol daily with close follow up with her [employer] Dr. Jama in [place] closely. - Patient Instructions Diet: Heart Healthy Diet Activity: As Tolerated - Discharge Plan *PRESCRIPTION DRUG MONITORING PROGRAM REVIEWED*: Not Applicable *COPY OF PRESCRIPTION DRUG MONITORING REPORT IN PATIENT HERNAN: Not Applicable Home Medications: Home Meds Acetaminophen/Diphenhydramine [Tylenol Pm Ex-Strength Caplet] 1 each PO ASDIRECTED PRN 03/21/20 [History] Aspirin [Aspirin EC] 81 mg PO DAILY 03/21/20 [History] Metoprolol Succinate [Toprol XL] 12.5 mg PO DAILY 03/21/20 [History] Nitroglycerin 0.4 mg PO ASDIRECTED PRN 03/21/20 [History] Rosuvastatin Calcium [Crestor] 40 mg PO BEDTIME 03/21/20 [History] Furosemide [Lasix] 10 mg PO DAILY 04/10/20 [History] Spironolactone [Aldactone] 12.5 mg PO DAILY 04/10/20 [History] Ticagrelor [Brilinta] 90 mg PO BID 04/10/20 [History] Oxygen Therapy Mode: Room Air Patient Handouts: Nonspecific Chest Pain, Adult, [id number] Referrals: Jacqueline Perkins MD [Primary Care Provider] - Shravan Jama MD [Ordering Only Provider] - - Discharge Summary/Plan Comment DC Time >30 min.: No - Patient Data Vitals - Most Recent: Last Vital Signs Temp 97.1 F 07/06/20 11:05 Pulse 79 07/06/20 11:05 Resp 16 07/06/20 11:05 BP 102/59 L 07/06/20 11:05 Pulse Ox 96 07/06/20 11:05 Weight - Most Recent: 141 lb I&O - Last 24 hours: Intake & Output 07/05/20 07/06/20 07/06/20 22:59 06:59 14:59 Intake Total 120 Output Total 500 Balance -380 Lab Results - Last 24 hrs: Laboratory Results - last 24 hr 07/05/20 07/05/20 07/05/20 Range/Units 14:38 14:38 14:38 WBC 9.06 (4.0-11.0) K/uL RBC 4.88 (4.30-5.90) M/uL Hgb 14.6 (12.0-16.0) g/dL Hct 45.5 (36.0-46.0) % MCV 93.2 (80.0-98.0) fL MCH 29.9 (27.0-32.0) pg MCHC 32.1 (31.0-37.0) g/dL RDW Std Deviation 44.3 (28.0-62.0) fl RDW Coeff of Betzy 13 (11.0-15.0) % Plt Count 242 (150-400) K/uL MPV 11.80 (7.40-12.00) fL Neut % (Auto) 61.7 (48.0-80.0) % Lymph % (Auto) 28.3 (16.0-40.0) % [place] % (Auto) 8.6 (0.0-15.0) % Eos % (Auto) 1.2 (0.0-7.0) % Baso % (Auto) 0.2 (0.0-1.5) % Neut # (Auto) 5.6 (1.4-5.7) K/uL Lymph # (Auto) 2.6 H (0.6-2.4) K/uL [place] # (Auto) 0.8 (0.0-0.8) K/uL Eos # (Auto) 0.1 (0.0-0.7) K/uL Baso # (Auto) 0.0 (0.0-0.1) K/uL Nucleated RBC % 0.0 /100WBC Nucleated RBCs # 0 K/uL D-Dimer, Quantitative (0.0-0.50) mg/L FEU Sodium 139 (136-145) mmol/L Potassium 3.7 (3.5-5.1) mmol/L Chloride 104 (98-107) mmol/L Carbon Dioxide 27.1 (21.0-32.0) mmol/L BUN 13 (7.0-18.0) mg/dL Creatinine 0.9 (0.6-1.0) mg/dL Est Cr Clr Drug Dosing 67.29 mL/min Estimated GFR (MDRD) > 60.0 ml/min Glucose 135 H (74-106) mg/dL Calcium 9.3 (8.5-10.1) mg/dL Phosphorus (2.6-4.7) mg/dL Magnesium (1.8-2.4) mg/dL Total Bilirubin 0.5 (0.2-1.0) mg/dL AST 19 (15-37) IU/L ALT 30 (14-63) IU/L Alkaline Phosphatase 61 (46-116) U/L Troponin I < 0.050 (0.000-0.056) ng/mL B-Natriuretic Peptide 178 H (<100) PG/ML Total Protein 7.5 (6.4-8.2) g/dL Albumin 3.7 (3.4-5.0) g/dL Globulin 3.8 (2.6-4.0) g/dL Albumin/Globulin Ratio 1.0 (0.9-1.6) Urine Color Urine Appearance Urine pH (5.0-8.0) Ur Specific [place] (1.001-1.035) Urine Protein (NEGATIVE) mg/dL Urine Glucose (UA) (NEGATIVE) mg/dL Urine Ketones (NEGATIVE) mg/dL Urine Occult Blood (NEGATIVE) Urine Nitrite (NEGATIVE) Urine Bilirubin (NEGATIVE) Urine Urobilinogen (<2.0) EU/dL Ur Leukocyte Esterase (NEGATIVE) Urine RBC (0-2/HPF) Urine WBC (0-5/HPF) Ur Epithelial Cells (NONE-FEW) Urine Bacteria (NEGATIVE) SARS-CoV-2 RNA (GUSTAVO) (NEGATIVE) 07/05/20 07/05/20 07/05/20 Range/Units 14:38 14:41 18:35 WBC (4.0-11.0) K/uL RBC (4.30-5.90) M/uL Hgb (12.0-16.0) g/dL Hct (36.0-46.0) % MCV (80.0-98.0) fL MCH (27.0-32.0) pg MCHC (31.0-37.0) g/dL RDW Std Deviation (28.0-62.0) fl RDW Coeff of Betzy (11.0-15.0) % Plt Count (150-400) K/uL MPV (7.40-12.00) fL Neut % (Auto) (48.0-80.0) % Lymph % (Auto) (16.0-40.0) % [place] % (Auto) (0.0-15.0) % Eos % (Auto) (0.0-7.0) % Baso % (Auto) (0.0-1.5) % Neut # (Auto) (1.4-5.7) K/uL Lymph # (Auto) (0.6-2.4) K/uL [place] # (Auto) (0.0-0.8) K/uL Eos # (Auto) (0.0-0.7) K/uL Baso # (Auto) (0.0-0.1) K/uL Nucleated RBC % /100WBC Nucleated RBCs # K/uL D-Dimer, Quantitative 0.42 (0.0-0.50) mg/L FEU Sodium (136-145) mmol/L Potassium (3.5-5.1) mmol/L Chloride (98-107) mmol/L Carbon Dioxide (21.0-32.0) mmol/L BUN (7.0-18.0) mg/dL Creatinine (0.6-1.0) mg/dL Est Cr Clr Drug Dosing mL/min Estimated GFR (MDRD) ml/min Glucose (74-106) mg/dL Calcium (8.5-10.1) mg/dL Phosphorus (2.6-4.7) mg/dL Magnesium (1.8-2.4) mg/dL Total Bilirubin (0.2-1.0) mg/dL AST (15-37) IU/L ALT (14-63) IU/L Alkaline Phosphatase (46-116) U/L Troponin I < 0.050 (0.000-0.056) ng/mL B-Natriuretic Peptide (<100) PG/ML Total Protein (6.4-8.2) g/dL Albumin (3.4-5.0) g/dL Globulin (2.6-4.0) g/dL Albumin/Globulin Ratio (0.9-1.6) Urine Color Urine Appearance Urine pH (5.0-8.0) Ur Specific [place] (1.001-1.035) Urine Protein (NEGATIVE) mg/dL Urine Glucose (UA) (NEGATIVE) mg/dL Urine Ketones (NEGATIVE) mg/dL Urine Occult Blood (NEGATIVE) Urine Nitrite (NEGATIVE) Urine Bilirubin (NEGATIVE) Urine Urobilinogen (<2.0) EU/dL Ur Leukocyte Esterase (NEGATIVE) Urine RBC (0-2/HPF) Urine WBC (0-5/HPF) Ur Epithelial Cells (NONE-FEW) Urine Bacteria (NEGATIVE) SARS-CoV-2 RNA (GUSTAVO) NEGATIVE (NEGATIVE) 07/05/20 07/06/20 07/06/20 Range/Units 18:49 00:25 05:00 WBC 7.45 (4.0-11.0) K/uL RBC 4.59 (4.30-5.90) M/uL Hgb 13.7 (12.0-16.0) g/dL Hct 43.1 (36.0-46.0) % MCV 93.9 (80.0-98.0) fL MCH 29.8 (27.0-32.0) pg MCHC 31.8 (31.0-37.0) g/dL RDW Std Deviation 45.0 (28.0-62.0) fl RDW Coeff of Betzy 13 (11.0-15.0) % Plt Count 229 (150-400) K/uL MPV 12.00 (7.40-12.00) fL Neut % (Auto) 49.9 (48.0-80.0) % Lymph % (Auto) 37.2 (16.0-40.0) % [place] % (Auto) 10.7 (0.0-15.0) % Eos % (Auto) 1.9 (0.0-7.0) % Baso % (Auto) 0.3 (0.0-1.5) % Neut # (Auto) 3.7 (1.4-5.7) K/uL Lymph # (Auto) 2.8 H (0.6-2.4) K/uL [place] # (Auto) 0.8 (0.0-0.8) K/uL Eos # (Auto) 0.1 (0.0-0.7) K/uL Baso # (Auto) 0.0 (0.0-0.1) K/uL Nucleated RBC % 0.0 /100WBC Nucleated RBCs # 0 K/uL D-Dimer, Quantitative (0.0-0.50) mg/L FEU Sodium (136-145) mmol/L Potassium (3.5-5.1) mmol/L Chloride (98-107) mmol/L Carbon Dioxide (21.0-32.0) mmol/L BUN (7.0-18.0) mg/dL Creatinine (0.6-1.0) mg/dL Est Cr Clr Drug Dosing mL/min Estimated GFR (MDRD) ml/min Glucose (74-106) mg/dL Calcium (8.5-10.1) mg/dL Phosphorus (2.6-4.7) mg/dL Magnesium (1.8-2.4) mg/dL Total Bilirubin (0.2-1.0) mg/dL AST (15-37) IU/L ALT (14-63) IU/L Alkaline Phosphatase (46-116) U/L Troponin I < 0.050 (0.000-0.056) ng/mL B-Natriuretic Peptide (<100) PG/ML Total Protein (6.4-8.2) g/dL Albumin (3.4-5.0) g/dL Globulin (2.6-4.0) g/dL Albumin/Globulin Ratio (0.9-1.6) Urine Color YELLOW Urine Appearance CLOUDY Urine pH 7.5 (5.0-8.0) Ur Specific [place] 1.020 (1.001-1.035) Urine Protein 30 H (NEGATIVE) mg/dL Urine Glucose (UA) NEGATIVE (NEGATIVE) mg/dL Urine Ketones NEGATIVE (NEGATIVE) mg/dL Urine Occult Blood NEGATIVE (NEGATIVE) Urine Nitrite NEGATIVE (NEGATIVE) Urine Bilirubin NEGATIVE (NEGATIVE) Urine Urobilinogen 0.2 (<2.0) EU/dL Ur Leukocyte Esterase SMALL H (NEGATIVE) Urine RBC 0-1 (0-2/HPF) Urine WBC 2-3 (0-5/HPF) Ur Epithelial Cells MODERATE (NONE-FEW) Urine Bacteria 1+ H (NEGATIVE) SARS-CoV-2 RNA (GUSTAVO) (NEGATIVE) 07/06/20 Range/Units 05:00 WBC (4.0-11.0) K/uL RBC (4.30-5.90) M/uL Hgb (12.0-16.0) g/dL Hct (36.0-46.0) % MCV (80.0-98.0) fL MCH (27.0-32.0) pg MCHC (31.0-37.0) g/dL RDW Std Deviation (28.0-62.0) fl RDW Coeff of Betzy (11.0-15.0) % Plt Count (150-400) K/uL MPV (7.40-12.00) fL Neut % (Auto) (48.0-80.0) % Lymph % (Auto) (16.0-40.0) % [place] % (Auto) (0.0-15.0) % Eos % (Auto) (0.0-7.0) % Baso % (Auto) (0.0-1.5) % Neut # (Auto) (1.4-5.7) K/uL Lymph # (Auto) (0.6-2.4) K/uL [place] # (Auto) (0.0-0.8) K/uL Eos # (Auto) (0.0-0.7) K/uL Baso # (Auto) (0.0-0.1) K/uL Nucleated RBC % /100WBC Nucleated RBCs # K/uL D-Dimer, Quantitative (0.0-0.50) mg/L FEU Sodium 140 (136-145) mmol/L Potassium 3.7 (3.5-5.1) mmol/L Chloride 107 (98-107) mmol/L Carbon Dioxide 25.7 (21.0-32.0) mmol/L BUN 12 (7.0-18.0) mg/dL Creatinine 1.0 (0.6-1.0) mg/dL Est Cr Clr Drug Dosing 60.56 mL/min Estimated GFR (MDRD) 58.7 ml/min Glucose 92 (74-106) mg/dL Calcium 8.9 (8.5-10.1) mg/dL Phosphorus 3.5 (2.6-4.7) mg/dL Magnesium 2.3 (1.8-2.4) mg/dL Total Bilirubin 0.4 (0.2-1.0) mg/dL AST 20 (15-37) IU/L ALT 33 (14-63) IU/L Alkaline Phosphatase 56 (46-116) U/L Troponin I (0.000-0.056) ng/mL B-Natriuretic Peptide (<100) PG/ML Total Protein 6.8 (6.4-8.2) g/dL Albumin 3.2 L (3.4-5.0) g/dL Globulin 3.6 (2.6-4.0) g/dL Albumin/Globulin Ratio 0.9 (0.9-1.6) Urine Color Urine Appearance Urine pH (5.0-8.0) Ur Specific [place] (1.001-1.035) Urine Protein (NEGATIVE) mg/dL Urine Glucose (UA) (NEGATIVE) mg/dL Urine Ketones (NEGATIVE) mg/dL Urine Occult Blood (NEGATIVE) Urine Nitrite (NEGATIVE) Urine Bilirubin (NEGATIVE) Urine Urobilinogen (<2.0) EU/dL Ur Leukocyte Esterase (NEGATIVE) Urine RBC (0-2/HPF) Urine WBC (0-5/HPF) Ur Epithelial Cells (NONE-FEW) Urine Bacteria (NEGATIVE) SARS-CoV-2 RNA (GUSTAVO) (NEGATIVE) Med Orders - Current: Current Medications Acetaminophen (Tylenol) 650 mg PO Q4H PRN PRN Reason: Pain (Mild 1-3)/fever Last Admin: 07/05/20 19:38 Dose: 650 mg Documented by: Aspirin (Halfprin) 81 mg PO DAILY [facility] Last Admin: 07/06/20 09:11 Dose: 81 mg Documented by: Enoxaparin Sodium (Lovenox) 40 mg SUBCUT Q24H [facility] Last Admin: 07/05/20 18:45 Dose: 40 mg Documented by: Furosemide (Lasix) 10 mg PO DAILY [facility] Last Admin: 07/06/20 09:12 Dose: 10 mg Documented by: Metoprolol Succinate (Toprol Xl) 12.5 mg PO DAILY [facility] Last Admin: 07/06/20 09:14 Dose: Not Given Documented by: Nitroglycerin (Nitrostat) 0.4 mg SL ASDIRECTED PRN PRN Reason: Chest Pain Ondansetron HCl (Zofran) 4 mg IVPUSH Q4H PRN PRN Reason: Nausea Pantoprazole Sodium (Protonix) 40 mg PO DAILY [facility] Last Admin: 07/06/20 09:11 Dose: 40 mg Documented by: Ticagrelor 90 Mg 1 each PO BID [facility] Last Admin: 07/06/20 09:15 Dose: Not Given Documented by: Rosuvastatin Calcium (Crestor) 40 mg PO BEDTIME [facility] Last Admin: 07/05/20 22:05 Dose: 40 mg Documented by: Sodium Chloride (Saline Flush) 10 ml FLUSH ASDIRECTED PRN PRN Reason: Keep Vein Open Last Admin: 07/05/20 14:40 Dose: 10 ml Documented by: Sodium Chloride (Saline Flush) 2.5 ml FLUSH ASDIRECTED PRN PRN Reason: Keep Vein Open Last Admin: 07/05/20 14:40 Dose: 2.5 ml Documented by: Spironolactone (Aldactone) 12.5 mg PO DAILY [facility] Last Admin: 07/06/20 09:11 Dose: 12.5 mg Documented by: Discontinued Medications Influenza Virus Vaccine (Pharmacy To Dose - Influenza Vaccine) 1 each IM ONETIME ONE Stop: 07/05/20 19:16 Last Admin: 07/05/20 22:02 Dose: Not Given Documented by: Influenza Virus Vaccine (Pharmacy To Dose - Influenza Vaccine) 1 each IM ONETIME ONE Stop: 07/06/20 09:01 Non-Formulary Medication (Rosuvastatin Calcium [Crestor]) 40 mg PO BEDTIME [facility] Last Admin: 07/05/20 22:04 Dose: Not Given Documented by: Non-Formulary Medication (Ticagrelor) 90 mg PO BID [facility] Last Admin: 07/05/20 22:04 Dose: Not Given Documented by: Ticagrelor 90mg 90 mg PO BID [facility] Pneumococcal Polyvalent Vaccine (Pneumovax 23) 25 mcg IM .ONCE ONE Stop: 07/05/20 19:31 Last Admin: 07/05/20 22:02 Dose: Not Given Documented by: Pneumococcal Polyvalent Vaccine (Pneumovax 23) 25 mcg IM .ONCE ONE Stop: 07/06/20 09:01
[2020-07-06] MEDS ORDERED: Pneumococcal Polyvalent-23 Vaccine 0.5 ML SDV IM ONE (15:00)
[2020-07-06] MEDS ORDERED: FLU VACC QS2020-21(6MOS UP)/PF 60 MCG/0.5 ML SYRINGE IM ONE (15:00)
--- NOTE | 2020-07-07 11:44 | PCM.PRNOTE ---
- Free Text/Narrative Note: device interrogation last interrogation 05/10/2020 DOS 07/06/2020 Company [facility] [place] Model vigilant EL ICD [id number] Mode DDD LRL 60 % paced < 1% intrinsic rhythm SR Battery life 13 years Atrial lead sensin.4 capture threshold: 0.8@0.4 impedance: 581 Ventricular lead sensin.6 capture threshold: 0.6@0.4 impedance: 414 episode: NSVT no tehrapies MS: 0 imp normal functioning dual chamber ICD plan follow up with primary paper tester
== END 2020-07-06 15:04 | disposition home or self-care (01) ==
LOC: MW.ED 14:08 → MW.MS 16:50
PROVIDERS: ADMIT Internal Medicine; ATTEND Internal Medicine
DX: R07.89 Other chest pain (principal); R00.2 Palpitations; I25.10 Atherosclerotic heart disease of native coronary artery without angina pectoris; I10 Essential (primary) hypertension; I25.2 Old myocardial infarction; E78.00 Pure hypercholesterolemia, unspecified; Z95.5 Presence of coronary angioplasty implant and graft; Z88.0 Allergy status to penicillin; Z88.2 Allergy status to sulfonamides; Z88.1 Allergy status to other antibiotic agents; Z79.82 Long term (current) use of aspirin; Z79.899 Other long term (current) drug therapy; Z95.0 Presence of cardiac pacemaker; Z98.890 Other specified postprocedural states; Z87.891 Personal history of nicotine dependence; Z20.828 Contact with and (suspected) exposure to other viral communicable diseases; Z01.812 Encounter for preprocedural laboratory examination
CPT/HCPCS: 36415; 71045; 80053; 81001; 83735; 83880; 84100; 84484; 85025; 85379; 87086; 87635; 90471; 90686; 90732; 93005; 96372; 99285; A9270; G0378; J1650; 93010; 99217; 99218; 99284; G0008; G0009; U0002

== ENCOUNTER 2021-04-29 09:19 | Emergency (ER) | payer BC | END 2021-04-29 11:34 | disposition left against medical advice (07) | LOC: MW.ED 09:19 | DX: M25.571 Pain in right ankle and joints of right foot (principal); Z53.21 Procedure and treatment not carried out due to patient leaving prior to being seen by health care provider ==

== ENCOUNTER 2021-09-27 19:13 | Emergency (ER) | payer BC ==
[2021-09-27] MEDS ORDERED: Ibuprofen 600 MG Tab PO ONE (19:42)
== END 2021-09-27 20:55 | disposition home or self-care (01) ==
LOC: MW.ED 19:13
DX: M79.89 Other specified soft tissue disorders (principal); I25.10 Atherosclerotic heart disease of native coronary artery without angina pectoris; E78.00 Pure hypercholesterolemia, unspecified; I10 Essential (primary) hypertension; Z95.0 Presence of cardiac pacemaker; Z88.0 Allergy status to penicillin; Z88.2 Allergy status to sulfonamides; Z79.899 Other long term (current) drug therapy
CPT/HCPCS: 36415; 73610; 85379; 99283; A9270

== ENCOUNTER 2022-02-13 18:49 | Emergency (ER) | payer BC ==
[2022-02-13 23:32] LABS: POTASSIUM,K 3.7 mmol/L (3.5-5.1)
== END 2022-02-14 00:22 | disposition home or self-care (01) ==
LOC: MW.ED 18:49
DX: R60.0 Localized edema (principal); R31.9 Hematuria, unspecified; R80.9 Proteinuria, unspecified; E78.00 Pure hypercholesterolemia, unspecified; I10 Essential (primary) hypertension; Z95.0 Presence of cardiac pacemaker; Z95.5 Presence of coronary angioplasty implant and graft; Z88.0 Allergy status to penicillin; Z88.2 Allergy status to sulfonamides; Z79.82 Long term (current) use of aspirin; Z79.02 Long term (current) use of antithrombotics/antiplatelets; Z79.899 Other long term (current) drug therapy
CPT/HCPCS: 36415; 71045; 71045-26; 80053; 81001; 83880; 84484; 85025; 93005; 93010; 99283; 99285-25

== ENCOUNTER 2022-09-17 21:41 | Emergency (ER) | payer BC ==
[2022-09-17] MEDS ORDERED: Aspirin 81 MG Tab.Chew PO ONE (21:49)
[2022-09-17] MEDS ORDERED: Alum Hydro/Mag Hydro/Simeth XS 15 ML, Lidocaine 2% 5 ML PO ONE ×2 (22:08)
[2022-09-17] MEDS ORDERED: Famotidine 20 MG Tab PO ONE (22:09)
[2022-09-17 23:13] LABS: CARBON DIOXIDE,CO2 25.5 mmol/L (21.0-32.0); POTASSIUM,K 3.4 mmol/L (3.5-5.1)
== END 2022-09-18 02:02 | disposition home or self-care (01) ==
LOC: MW.ED 21:41
DX: K21.00 Gastro-esophageal reflux disease with esophagitis, without bleeding (principal); E78.00 Pure hypercholesterolemia, unspecified; I10 Essential (primary) hypertension; I25.10 Atherosclerotic heart disease of native coronary artery without angina pectoris; Z87.891 Personal history of nicotine dependence; Z88.0 Allergy status to penicillin; Z88.2 Allergy status to sulfonamides; Z79.82 Long term (current) use of aspirin; Z79.899 Other long term (current) drug therapy
CPT/HCPCS: 36415; 71045; 80053; 83735; 84484; 85025; 87635; 93005; 99284; A9270; U0002

== ENCOUNTER 2023-08-12 08:23 | Emergency (ER) | payer BC ==
[2023-08-12] MEDS ORDERED: Aspirin 81 MG Tab.Chew PO ONE (08:39)
[2023-08-12 08:55] LABS: BASOPHILS ABSOLUTE AUTO 0.05 K/uL (0.00-0.20); BASOPHILS PERCENT AUTO 0.7 % (0.0-1.0); EOSINOPHILS ABSOLUTE AUTO 0.16 K/uL (0.00-0.45); EOSINOPHILS PERCENT AUTO 2.2 % (0.0-6.0); HEMATOCRIT 43.8 % (37.0-47.0); HEMOGLOBIN 14.8 g/dL (12.0-16.0); IMMATURE GRAN ABSOLUTE AUTO 0.01 K/uL (0.00-0.05); IMMATURE GRAN PERCENT AUTO 0.1 % (0.0-0.4); LYMPHOCYTES PERCENT AUTO 25.1 % (24.0-44.0); MEAN CORPUSCULAR HEMOGLOBIN 30.4 pg (28.0-32.0); MEAN CORPUSCULAR HGB CONC 33.8 g/dL (32.0-36.0); MEAN CORPUSCULAR VOLUME 89.9 fL (83.0-99.0); MEAN PLATELET VOLUME 11.7 fL (9.4-12.3); MONOCYTES ABSOLUTE AUTO 0.79 K/uL (0.00-0.80); NEUTROPHILS ABSOLUTE AUTO 4.35 K/uL (1.80-7.70); NEUTROPHILS PERCENT AUTO 60.9 % (41.0-71.0); PLATELET COUNT,PLT 202 K/uL (150-400); RED BLOOD CELL COUNT 4.87 M/uL (4.10-5.30); WHITE BLOOD CELL COUNT,WBC 7.16 K/uL (3.9-11.3)
[2023-08-12 09:01] LABS: INR 0.97 (0.86-1.11); PTT,PARTIAL THROMBOPLSTIN TIME 27.9 SEC (23.9-30.7)
[2023-08-12 09:22] LABS: CALCIUM 9.2 mg/dL (8.5-10.1); CREATININE 1.1 mg/dL (0.6-1.0); EST CRCL DRUG DOSING (CG) 53.22 mL/min; POTASSIUM,K 3.7 mmol/L (3.5-5.1); PROTEIN TOTAL,TP 7.3 g/dL (6.4-8.2)
[2023-08-12 09:23] LABS: A/G RATIO 0.9 (0.9-1.6); ALBUMIN 3.5 g/dL (3.4-5.0); BILIRUBIN TOTAL 0.6 mg/dL (0.2-1.0); MAGNESIUM 2.2 mg/dL (1.8-2.4); TSH ULTRASENSITIVE 3.68 uIU/mL (0.36-3.74)
[2023-08-12 09:46] LABS: APPEARANCE,URINE CLEAR; BILIRUBIN,URINE NEGATIVE (NEGATIVE); COLOR,URINE YELLOW; GLUCOSE,URINE NEGATIVE (NEGATIVE); KETONES,URINE NEGATIVE (NEGATIVE); LEUKOCYTE ESTERASE,URINE TRACE (NEGATIVE); NITRITE,URINE NEGATIVE (NEGATIVE); OCCULT BLOOD,URINE SMALL (NEGATIVE); PROTEIN,URINE TRACE mg/dL (NEGATIVE); UROBILINOGEN,URINE 0.2 EU/dL (<2.0)
[2023-08-12 10:12] LABS: BACTERIA,URINE RARE (NEGATIVE); EPITHELIAL CELLS,URINE OCCASIONAL (NONE-FEW)
== END 2023-08-12 11:53 | disposition home or self-care (01) ==
LOC: MW.ED 08:23
DX: R07.9 Chest pain, unspecified (principal); I10 Essential (primary) hypertension; E78.00 Pure hypercholesterolemia, unspecified; I25.2 Old myocardial infarction; Z79.82 Long term (current) use of aspirin; Z88.0 Allergy status to penicillin; Z88.2 Allergy status to sulfonamides; Z79.899 Other long term (current) drug therapy
CPT/HCPCS: 36415; 71045; 80053; 81001; 83690; 83735; 83880; 84443; 84484; 85025; 85610; 85730; 93005; 99285; A9270

== ENCOUNTER 2024-02-15 09:00 | Emergency (ER) | payer BC ==
[2024-02-15] MEDS: Sodium Chloride 0.9% 10 ML Syringe FLUSH PRN (09:27)
[2024-02-15] MEDS: Sodium Chloride 0.9% 2.5 ML Syringe FLUSH PRN (09:27)
[2024-02-15 09:29] LABS: BASOPHILS ABSOLUTE AUTO 0.04 K/uL (0.00-0.20); BASOPHILS PERCENT AUTO 0.5 % (0.0-1.0); EOSINOPHILS ABSOLUTE AUTO 0.28 K/uL (0.00-0.45); EOSINOPHILS PERCENT AUTO 3.4 % (0.0-6.0); HEMATOCRIT 44.7 % (37.0-47.0); HEMOGLOBIN 14.8 g/dL (12.0-16.0); IMMATURE GRAN ABSOLUTE AUTO 0.03 K/uL (0.00-0.05); IMMATURE GRAN PERCENT AUTO 0.4 % (0.0-0.4); MEAN CORPUSCULAR HGB CONC 33.1 g/dL (32.0-36.0); MEAN CORPUSCULAR VOLUME 90.5 fL (83.0-99.0); MEAN PLATELET VOLUME 11.9 fL (9.4-12.3); MONOCYTES ABSOLUTE AUTO 1.03 K/uL (0.00-0.80); MONOCYTES PERCENT AUTO 12.4 % (0.0-8.0); NEUTROPHILS ABSOLUTE AUTO 4.96 K/uL (1.80-7.70); NEUTROPHILS PERCENT AUTO 59.3 % (41.0-71.0); PLATELET COUNT,PLT 197 K/uL (150-400); RED BLOOD CELL COUNT 4.94 M/uL (4.10-5.30); WHITE BLOOD CELL COUNT,WBC 8.34 K/uL (3.9-11.3)
[2024-02-15 09:48] LABS: A/G RATIO 0.9 (0.9-1.6); ALBUMIN 3.4 g/dL (3.4-5.0); BILIRUBIN TOTAL 0.5 mg/dL (0.2-1.0); CALCIUM 8.9 mg/dL (8.5-10.1); CARBON DIOXIDE,CO2 23.7 mmol/L (21.0-32.0); CREATININE 1.1 mg/dL (0.6-1.0); EST CRCL DRUG DOSING (CG) 53.22 mL/min; POTASSIUM,K 3.6 mmol/L (3.5-5.1); PROTEIN TOTAL,TP 7.2 g/dL (6.4-8.2)
[2024-02-15] MEDS: Acetaminophen 325 MG Tab PO ONE (09:59)
[2024-02-15] MEDS: Lidocaine 4% 1 each Patch TOP PRN (12:24)
== END 2024-02-15 14:40 | disposition home or self-care (01) ==
LOC: MW.ED 09:00
DX: M54.6 Pain in thoracic spine (principal); I10 Essential (primary) hypertension; E78.00 Pure hypercholesterolemia, unspecified; Z88.0 Allergy status to penicillin; Z88.2 Allergy status to sulfonamides; Z88.8 Allergy status to other drugs, medicaments and biological substances; Z79.82 Long term (current) use of aspirin; Z79.899 Other long term (current) drug therapy; Z75.8 Other problems related to medical facilities and other health care
CPT/HCPCS: 36415; 71045; 80053; 83690; 83880; 84484; 85025; 85379; 93005; 99284; A9270; J3490